=== PATIENT | female | born 1980 | race Caucasian/White ===

== ENCOUNTER 2018-06-30 17:02 | Emergency (ER) | payer OTHER, SELFPAY ==
[2018-06-30 17:18] VITALS: PULSE 126; RESP 20; TEMP 36.3; O2SAT 100; BMI 26.5
--- NOTE | 2018-06-30 17:22 | DI.RAD.S_ITS ---
PROCEDURE: XR FOOT RT MIN 3V INDICATIONS: injury, pain TECHNIQUE: 3 views of the foot were acquired. COMPARISON: None. FINDINGS: Bones: No fractures or dislocations. No suspicious bony lesions. Plantar and Achilles calcaneal spurs are seen. Soft tissues: Mild soft tissue swelling is seen. IMPRESSION: Soft tissue swelling, without an additional acute plain film abnormality identified. Dictated by: Hang Figueroa M.D. on 06/30/2018 at 17:40 Approved by: Hang Figueroa M.D. on 06/30/2018 at 17:40
--- NOTE | 2018-06-30 19:57 | ED_ITS ---
HPI - Extremity Injury (Lower) <PAUL Dejesus - Last Filed: 06/30/18 22:10> General Chief Complaint: Extremity Injury, Lower Stated Complaint: THINKS SHE BROKE HER RIGHT FOOT Time Seen by Provider: 06/30/18 19:56 Source: patient Mode of arrival: ambulatory Limitations: no limitations History of Present Illness HPI Narrative: 38-year-old healthy female that is a nonsmoker here for complaint of pain into her right toes or past 3 days. She states she has increased pain with ambulation and movement of the toes she denies any trauma to the toes area. She states that she has been any thing strain this recently. She reports the pain is worsened over the past couple of days making it hard for her to ambulate. Pain is limited to the 2nd and 3rd right toe mostly along the Mtp joints. She denies any other concerns or complaints at this time. MD complaint: other Related Data Previous Rx's Medication Instructions Recorded medroxyprogesterone 10 mg PO SI #60 tab 07/28/17 oxycodone-acetaminophen [Percocet] 0 tab PO Q4HP PRN #20 tab 07/28/17 Allergies Allergy/AdvReac Type Severity Reaction Status Date / Time No Known Allergies Allergy Uncoded 01/19/18 11:46 Review of Systems <PAUL Dejesus - Last Filed: 06/30/18 22:10> Review of Systems All systems reviewed & are unremarkable except as noted in HPI and below Constitutional Denies chills, Denies fever(s), Denies lethargy and Denies weakness Eyes Denies change in vision, Denies eye discharge, Denies irritation and Denies loss of vision ENT Ears, Nose, Mouth, and Throat: Denies change in voice, Denies neck pain and Denies sore throat Cardiovascular Denies chest pain, Denies irregular heart rhythm, Denies lightheadedness, Denies palpitations, Denies dyspnea, Denies dyspnea on exertion and Denies orthopnea Respiratory Denies cough, Denies dyspnea, Denies dyspnea on exertion and Denies wheezing Genitourinary Denies hematuria, Denies flank pain, Denies urinary incontinence and Denies urinary urgency Musculoskeletal Denies neck pain Integumentary/Breasts Denies pruritus, Denies erythema, Denies rash and Denies wounds Neurologic Denies confusion, Denies loss of vision and Denies weakness Psychiatric Denies anxiety, Denies confusion, Denies depression, Denies homicidal ideation and Denies suicidal ideation Endocrine Denies palpitations Hematologic/Lymphatic Denies easy bruising Allergic/Immunologic Denies wheezing Exam <PAUL Dejesus - Last Filed: 06/30/18 22:10> Initial Vital Signs Initial Vital Signs: Vital Signs Temperature 97.4 F L 06/30/18 17:18 Pulse Rate 126 H 06/30/18 17:18 Respiratory Rate 20 06/30/18 17:18 Pulse Oximetry 100 06/30/18 17:18 Const General: cooperative and well developed Nutritional Appearance: well nourished Orientation: alert, awake, oriented x3 and not confused HENHI Mouth: oral mucosae normal and moist mucous membranes Eyes General: appearance normal, both eyes and all related structures Eyelids: eyelids normal Conjunctivae: conjunctivae normal Sclera: sclerae normal Pupils: PERRL EOM: EOM intact bilaterally Resp Effort & Inspection: normal respiratory effort, able to speak in complete sentences, no respiratory distress and no use of accessory muscles Auscultation: clear to auscultation bilaterally, no rales, no rhonchi and no wheezes Cardio Rate: regular rate Rhythm: regular rhythm Heart Sounds: no click, no gallops, no murmurs and no rubs Pulses: normal peripheral pulses Skin General: no rashes or lesions noted, No jaundice and No petechiae Neuro General: alert, oriented x3, gait normal and no focal motor deficits Speech: speech normal Extrem Other: Right foot with no signs of trauma. No deformities. No ecchymosis. No swelling. No open lesions. Distal sensation is intact. Distal range of motion is intact however patient states she has difficulty moving the 2nd and 3rd toes due to discomfort. Distal cap refill less than 2 sec. <Shonna Woo DO - Last Filed: 07/01/18 03:07> Initial Vital Signs Initial Vital Signs: Vital Signs Temperature 97.4 F L 06/30/18 17:18 Pulse Rate 126 H 06/30/18 17:18 Respiratory Rate 20 06/30/18 17:18 Pulse Oximetry 100 06/30/18 17:18 Course <PAUL Dejesus - Last Filed: 06/30/18 22:10> Orders Ordered: ED Orders 06/30/18 17:22 XR foot RT min 3V Stat Vital Signs - 8 hr 06/30/18 20:30 Temperature 97.6 F Pulse Rate 88 Respiratory Rate 16 Blood Pressure [Left Arm] 123/88 Pulse Oximetry 100 <Shonna Woo DO - Last Filed: 07/01/18 03:07> Orders Ordered: ED Orders 06/30/18 17:22 XR foot RT min 3V Stat Vital Signs - 8 hr 06/30/18 20:30 Temperature 97.6 F Pulse Rate 88 Respiratory Rate 16 Blood Pressure [Left Arm] 123/88 Pulse Oximetry 100 MDM - Extremity Injury (Lower) <PAUL Dejesus - Last Filed: 06/30/18 22:10> Imaging Data Foot: Radiologist's impression: [address] [address] XRay Report Signed Patient: Eliz Sorensen MMR#: [id number] : 1980Acct:[id number] Age/Sex: 38 / FDate of Service: 06/30/18 Loc: ED Accession Number: [id number] Procedure: XR foot RT min 3V Ordering Provider: Junior Bobby PROCEDURE: XR FOOT RT MIN 3V INDICATIONS: injury, pain TECHNIQUE: 3 views of the foot were acquired. COMPARISON: None. FINDINGS: Bones: No fractures or dislocations. No suspicious bony lesions. Plantar and Achilles calcaneal spurs are seen. Soft tissues: Mild soft tissue swelling is seen. IMPRESSION: Soft tissue swelling, without an additional acute plain film abnormality identified. Dictated by: Hang Figueroa M.D. on 06/30/2018 at 17:40 Approved by: Hang Figueroa M.D. on 06/30/2018 at 17:40 [facility] Narrative Medical decision making narrative: X-ray of the right foot was obtained was negative for any acute fractures. Will treat for acute strain with over-the- counter Tylenol or Motrin as needed for any discomfort. Ice and elevation help with any swelling. She is placed in a postop shoe for comfort and support. She has a follow-up appointment with Podiatry tomorrow.. Follow up with primary care provider. Return emergency room any worsening symptoms. Discharge Plan Departure Patient Disposition: Home Clinical Impression: Sprain of right foot Discharge Date/Time: 06/30/18 20:42 Interventions: ED Discharge Assessment Last Done: 06/30/18 20:41 Instructions: DI for Foot Sprain Activity Restrictions/Additional Instructions: X-ray the right foot was obtained was negative for any acute findings. Signs and symptoms presents as sprain to the right foot. Follow up with primary care provider. Follow up with Podiatry as scheduled. [id number] Tylenol or Motrin as needed for any discomfort. Ice and elevation help with any swelling. You are placed in a postop shoe for comfort and support use as directed. For any worsening symptoms return to the emergency room. If continued pain at does not resolve may need to have advanced imaging such as MRI. Prescriptions: No Action medroxyprogesterone 10 MG tablet 10 mg PO SI Qty: 60 RF: 2 oxycodone-acetaminophen [Percocet] 5 MG/325 MG tablet PO Q4HP PRNQty: 20 RF: 0 Referrals: Patrick Monteiro MD [Primary Care Provider] - <Shonna Woo DO - Last Filed: 07/01/18 03:07> Cosign ED Attending Nadineature Attestation: I was immediately available in the department for consultation. Documentation has been reviewed. I agree with assessment and plan.
[2018-06-30 20:30] VITALS: BP 123/88; PULSE 88; RESP 16; TEMP 36.4; O2SAT 100
== END 2018-06-30 20:42 | disposition home or self-care (01) ==
PROVIDERS: Emergency Provider Nurse Practitioner Family; Family Provider Family Medicine; PCP Family Medicine
DX: S93.601A Unspecified sprain of right foot, initial encounter (principal)
CPT/HCPCS: 73630; 99282; 99283

== ENCOUNTER → 2018-07-01 15:27 | Outpatient (CLI) | payer OTHER, SELFPAY ==
[2018-07-01 16:41] LABS: Erythrocyte Sedimentation Rate 7 MM/HR (0-20)
[2018-07-01 17:26] LABS: Uric Acid 4.4 mg/dL (2.5-6.2)
[2018-07-01 17:33] LABS: C-Reactive Protein Quant < 0.5 mg/dL (<1.0); Rheumatoid Factor < 8.6 IU/mL (<12.0)
[2018-07-04 14:54] LABS: HLA B27 NEGATIVE (Negative)
[2018-07-04 18:54] LABS: ANA Pattern Homogeneous; ANA Screen, IFA Positive (Negative)
== END ==
PROVIDERS: Family Provider Family Medicine; PCP Family Medicine; Visit Provider Podiatrist
DX: M79.671 Pain in right foot (principal)
CPT/HCPCS: 36415; 84550; 85651; 86038; 86140; 86430; 86812

== ENCOUNTER → 2018-09-26 10:38 | Outpatient (CLI) | payer OTHER, SELFPAY ==
--- NOTE | 2018-09-26 | DI.MRI.S_ITS ---
PROCEDURE: MR FOOT RT WO/W CON INDICATIONS: ARTHROPATHY TECHNIQUE: Noncontrast coronal T1 spin echo and STIR, sagittal T1 spin echo with fat saturation and STIR, axial T1 spin echo and T2 fast spin echo with fat saturation. After the administration of contrast, axial/sagittal/coronal T1 spin echo with fat saturation through the right foot. COMPARISON: None. FINDINGS: Image quality: Excellent. Bones: There is marrow edema involving second proximal phalangeal shaft with mild surrounding soft tissue edema. No discrete fracture line is seen. No cortical disruption or erosion is noted. No other area of abnormal marrow signal. Well-defined plantar calcaneal enthesophyte is seen. No abnormal intraosseous enhancement. Soft tissues: No soft tissue masses are visualized. The scanned muscles demonstrate normal overall bulk and internal signal. Subcutaneous tissues appear normal as well. No abnormal soft tissue enhancement. Achilles tendon is intact. Plantar aponeurosis is intact. Extensor and flexor tendons of the ankle and foot are intact. Peroneus tendons are intact. Medial and lateral ankle ligaments are grossly intact. Lisfranc ligament and joint is intact. IMPRESSION: 1. Subtle marrow edema involving second proximal phalangeal shaft with surrounding soft tissue edema. No definite discrete fracture line is seen. No definite bony erosion or cortical destruction is noted. Finding may represent stress reaction versus early stress fracture involving the second proximal phalanx. 2. No other area of abnormal marrow signal. No area of abnormal contrast enhancement. 3. Tendons and ligaments of visualized right foot and ankle are grossly intact. Well-defined plantar calcaneal enthesophyte with intact plantar fascia. Dictated by: Isai Medina M.D. on 09/26/2018 at 14:39 Approved by: Isai Medina M.D. on 09/26/2018 at 14:51
== END ==
PROVIDERS: Family Provider Family Medicine; PCP Family Medicine; Visit Provider Specialist/Technologist Athletic Trainer
DX: R60.0 Localized edema (principal); M77.31 Calcaneal spur, right foot
CPT/HCPCS: 73720; A9579

== ENCOUNTER → 2020-04-16 16:28 | Outpatient (CLI) | payer OTHER, SELFPAY ==
--- NOTE | 2020-04-16 | DI.RAD.S_ITS ---
PROCEDURE: XR CHEST 2V INDICATIONS: Chest Wall Tenderness TECHNIQUE: 2 views of the chest were acquired. COMPARISON: [facility], CHEST 2 VIEW, 12/05/2008, 17:31. [facility], CHEST 2 VIEW, 08/06/2007, 11:01. FINDINGS: Surgical changes and devices: None. Lungs and pleura: Lungs are clear. No pleural effusions or pneumothorax. Mediastinum: Mediastinal contours are normal. Heart size is normal. Bones and chest wall: No suspicious bony abnormalities. Soft tissues appear unremarkable. IMPRESSION: Normal for age, no source of chest wall tenderness is seen. Dictated by: Ezio Ortega M.D. on 04/16/2020 at 17:01 Approved by: Ezio Ortega M.D. on 04/16/2020 at 17:02
--- NOTE | 2020-04-16 | DI.MG.S_ITS ---
BILATERAL DIGITAL SCREENING MAMMOGRAM 3D/2D WITH CAD: 04/16/2020 CLINICAL: Routine screening. Baseline exam. No prior exams were available for comparison. The tissue of both breasts is extremely dense, which lowers the sensitivity of mammography. Current study was also evaluated with a Computer Aided Detection (CAD) system. No significant masses, calcifications, or other findings are seen in either breast. IMPRESSION: NEGATIVE There is no mammographic evidence of malignancy. A 1 year screening mammogram is recommended. This exam was interpreted at Station ID: [id number]. NOTE: For mammograms, a report in lay terms will be sent to the patient. Approximately 15% of breast malignancies will not be visualized mammographically. In the management of a palpable breast mass, a negative mammogram must not discourage biopsy of a clinically suspicious lesion. Electronically Signed By: Elza ontiveros/annabel:04/16/2020 16:55:54 letter sent: Normal Exam ACR BI-RADS Category 1: Negative [id number]
== END ==
PROVIDERS: Family Provider Family Medicine; PCP Student in an Organized Health Care Education/Training Program; Referring Provider Student in an Organized Health Care Education/Training Program; Visit Provider Student in an Organized Health Care Education/Training Program
DX: Z12.31 Encounter for screening mammogram for malignant neoplasm of breast (principal); R07.89 Other chest pain
CPT/HCPCS: 71046; 77063; 77067

== ENCOUNTER → 2020-05-14 16:22 | Outpatient (CLI) | payer OTHER, SELFPAY ==
--- NOTE | 2020-05-14 | DI.US.S_ITS ---
PROCEDURE: US PELVIC COMPLETE INDICATIONS: ABNORMAL UTERINE BLEEDING TECHNIQUE: Real-time scanning was performed of the pelvic organs, with image documentation. Additional endovaginal scanning was necessary due to incomplete visualization of the adnexal and endometrial structures by transabdominal scanning. COMPARISON: [facility], US, PELVIC COMPLETE, 07/20/2017, 10:51. FINDINGS: Transabdominal scanning: A mild amount of free pelvic fluid is seen, which is considered to be within physiologic limits. Limited scanning through the kidneys shows no hydronephrosis. Endovaginal scanning: Uterus: Uterus is normal in size at 8.6 x 4.9 x 5.9 cm. The endometrium measures 14 mm in combined thickness. There is possible adenomyomatosis involving the uterus. Incidental note is made of nabothian cysts. Hypoechoic uterine lesions are seen, which are attributed to fibroids. They measure as follows: Left anterior uterus, intramural, potentially necrotic, 1.7 x 1.2 x 1.5 cm Mid anterior uterus, intramural, 1 x 0.8 x 1.1 cm Left anterior uterus, intramural, heterogeneous, ill-defined, 3 x 1.7 x 2.4 cm Ovaries: The right ovary measures 4.7 x 3.2 x 3 cm and demonstrates a complex cyst that measures 2.7 cm. The left ovary measures 3 x 1.5 x 1.7 cm and demonstrates an unremarkable sonographic appearance. IMPRESSION: A complex cyst involves the right ovary, most likely related to a hemorrhagic cyst. At clinical discretion, a followup pelvic ultrasound is suggested in 6 weeks to assure resolution/ improvement. Several irregular fibroids are seen. Dictated by: Hang Figueroa M.D. on 05/14/2020 at 17:14 Approved by: Hang Figueroa M.D. on 05/14/2020 at 17:16
== END ==
PROVIDERS: Family Provider Family Medicine; PCP Student in an Organized Health Care Education/Training Program; Referring Provider Student in an Organized Health Care Education/Training Program; Visit Provider Student in an Organized Health Care Education/Training Program
DX: N93.9 Abnormal uterine and vaginal bleeding, unspecified (principal); D25.1 Intramural leiomyoma of uterus; N83.291 Other ovarian cyst, right side
CPT/HCPCS: 76830; 76856

== ENCOUNTER → 2021-06-18 10:54 | Outpatient (CLI) | payer OTHER, SELFPAY ==
--- NOTE | 2021-06-18 | DI.MG.S_ITS ---
BILATERAL DIGITAL SCREENING MAMMOGRAM 3D/2D WITH CAD: 06/18/2021 CLINICAL: Routine screening. Comparison is made to exam dated: 04/16/2020 [facility]. The tissue of both breasts is extremely dense, which lowers the sensitivity of mammography. Current study was also evaluated with a Computer Aided Detection (CAD) system. No significant masses, calcifications, or other findings are seen in either breast. There has been no significant interval change. IMPRESSION: NEGATIVE There is no mammographic evidence of malignancy. A 1 year screening mammogram is recommended. This exam was interpreted at Station ID: [id number]. NOTE: For mammograms, a report in lay terms will be sent to the patient. Approximately 15% of breast malignancies will not be visualized mammographically. In the management of a palpable breast mass, a negative mammogram must not discourage biopsy of a clinically suspicious lesion. Electronically Signed By: Cory Hernandez acr/annabel:06/18/2021 11:54:44 letter sent: Normal Exam ACR BI-RADS Category 1: Negative 3341F
== END ==
PROVIDERS: PCP Student in an Organized Health Care Education/Training Program; Referring Provider Student in an Organized Health Care Education/Training Program; Visit Provider Student in an Organized Health Care Education/Training Program
DX: Z12.31 Encounter for screening mammogram for malignant neoplasm of breast (principal)
CPT/HCPCS: 77063; 77067

== ENCOUNTER 2021-12-26 11:27 | Emergency (ER) | payer OTHER, SELFPAY ==
[2021-12-26 11:33] VITALS: BP 167/83; PULSE 61; RESP 18; TEMP 36.6; O2SAT 97; BMI 27.4
--- NOTE | 2021-12-26 11:37 | DI.RAD.S_ITS ---
PROCEDURE: XR CHEST 1V INDICATIONS: chest pain TECHNIQUE: One view of the chest was acquired. COMPARISON: [facility], [place], XR CHEST 2V, 04/16/2020, 16:40. FINDINGS: Surgical changes and devices: None. Lungs and pleura: Lungs are clear. No pleural effusions or pneumothorax. Mediastinum: Mediastinal contours appear normal. Heart size is normal. Bones and chest wall: No suspicious bony lesions. Overlying soft tissues appear unremarkable. IMPRESSION: No acute cardiopulmonary abnormality. Dictated by: Cory Hernandez M.D. on 12/26/2021 at 12:54 Approved by: Cory Hernandez M.D. on 12/26/2021 at 12:55
[2021-12-26 12:02] LABS: Add Manual Diff / Slide Review NO; Basophils Absolute Auto 0 /uL (0-100); Basophils Percent Auto 0.5 % (0-2); Eosinophils Absolute Auto 0 /uL (0-450); Eosinophils Percent Auto 0.4 % (2-4); Hematocrit 42.3 % (36-46); Hemoglobin 14.8 g/dL (12.0-16.0); Lymphocytes Absolute Auto 4700 /uL (1100-4500); Lymphocytes Percent Auto 44.5 % (25-40); Mean Corpuscular Hemoglobin 32.5 PG (26-34); Mean Corpuscular Volume 92.8 fL (80-100); Monocytes Absolute Auto 700 /uL (0-900); Monocytes Percent Auto 7.1 % (3-14); Neutrophils Absolute Auto 5000 /uL (1500-7000); Neutrophils Percent Auto 47.5 % (50-75); Platelet Count 286 X10^3/uL (150-400); Red Blood Cell Count 4.55 X10^6/uL (4.0-5.2); Red Cell Distribution Width 12.7 % (11.6-14.8); White Blood Cell Count 10.5 X10^3/uL (4.5-11.0)
[2021-12-26 12:16] LABS: Alanine Aminotransferase 22 IU/L (<35); Albumin 4.8 g/dL (3.5-5.0); Albumin Globulin Ratio 1.5 (1.0-2.8); Alkaline Phosphatase 64 U/L (38-126); Aspartate Aminotransferase 27 IU/L (14-36); BUN Creatinine Ratio 26.3 (6-22); Bilirubin Total 0.5 mg/dL (0.2-1.3); Blood Urea Nitrogen 15 mg/dL (7-17); Calcium 9.8 mg/dL (8.4-10.2); Carbon Dioxide 26 mmol/L (22-32); Chloride 103 mmol/L (98-107); Creatine Kinase 53 U/L (30-135); Estimated Glomerular Filt Rate > 60.0 mL/min (>60); Globulin 3.2 g/dL (1.7-4.1); Glucose 86 mg/dL (70-100); HEMOLYSIS < 15 (0-50); Lipase 119 U/L (23-300); Magnesium 1.9 mg/dL (1.6-2.3); Potassium 3.6 mmol/L (3.4-5.1); Sodium 138 mmol/L (137-145)
[2021-12-26 12:20] VITALS: PULSE 68; O2SAT 98
[2021-12-26 12:21] VITALS: BP 154/74; PULSE 62; RESP 20; O2SAT 98
[2021-12-26 12:25] LABS: Troponin I < 0.012 ng/mL (0.01-0.034)
[2021-12-26 12:30] VITALS: BP 151/77; PULSE 59; RESP 20; O2SAT 97
--- NOTE | 2021-12-26 12:42 | ED.CHESTPAIN ---
HPI - Chest Pain <Lukas Lopez PA-C - Last Filed: 12/26/21 18:14> General Chief Complaint: Chest Pain Stated Complaint: Sebastian Shots Tues/Possible Cardio Event Time Seen by Provider: 12/26/21 12:20 Source: patient Mode of arrival: Ambulatory Limitations: no limitations History of Present Illness HPI narrative: This is a 41-year-old female with no significant past medical history presents to emergency department due to fatigue, left-sided anterior neck pain, and an episode of chest pain earlier this week after she received a lumbar cortisone injection 3 days ago. Patient states she is received a few cortisone injections in the past in the lumbar area and always felt ?crummy? but different than what she is feeling today. She states she was seen at primary care provider's office who advised her to come the emergency department to rule out cardiac event. Patient denies any nausea, vomiting, acute chest pain, shortness breath, or any other concerning signs symptoms. Related Data Previous Rx's Medication Instructions Recorded medroxyprogesterone 10 mg tablet 10 mg PO SI #60 tab 07/28/17 oxycodone-acetaminophen 5 mg-325 0 tab PO Q4HP PRN #20 tab 07/28/17 mg tablet (Percocet) Allergies Allergy/AdvReac Type Severity Reaction Status Date / Time No Known Allergies Allergy Uncoded 01/19/18 11:46 Review of Systems <Lukas Lopez PA-C - Last Filed: 12/26/21 18:14> Review of Systems Narrative: See HPI. Patient History <Lukas Lopez PA-C - Last Filed: 12/26/21 18:14> Social History Smoking Status: Never smoker Smoking Status: Never smoker Substance Use Type: does not use Exam <Lukas Lopez PA-C - Last Filed: 12/26/21 18:14> Initial Vital Signs Initial Vital Signs: Vital Signs Temperature 97.8 F 12/26/21 11:33 Pulse Rate 61 12/26/21 11:33 Respiratory Rate 18 12/26/21 11:33 Blood Pressure 167/83 H 12/26/21 11:33 Pulse Oximetry 97 12/26/21 11:33 Const General: cooperative and healthy appearing Orientation: Orientation (A&O x4) [facility] Head: normal to inspection, normocephalic and atraumatic Eyes General: appearance normal, both eyes and all related structures Alignment and Position: alignment normal Neck Neck: normal visual inspection, full ROM and other (No nuchal rigidity, trachea is midline, no JVD) Chest Chest: normal inspection of the chest Resp Effort & Inspection: normal respiratory effort and able to speak in complete sentences Cardio Rate: regular rate Rhythm: regular rhythm GI Inspection: normal to inspection Palpation: soft and other Other: Nontender Neuro General: patient alert, patient awake, patient oriented x3 and CN's II-XI intact bilaterally <Antonio Oh DO - Last Filed: 12/27/21 07:09> Initial Vital Signs Initial Vital Signs: Vital Signs Temperature 97.8 F 12/26/21 11:33 Pulse Rate 61 12/26/21 11:33 Respiratory Rate 18 12/26/21 11:33 Blood Pressure 167/83 H 12/26/21 11:33 Pulse Oximetry 97 12/26/21 11:33 Course <Lukas Lopez PA-C - Last Filed: 12/26/21 18:14> Orders Ordered: ED Orders 12/26/21 11:37 XR chest 1V Stat EKG-12 Lead Stat 12/26/21 11:45 Complete Blood Count AUTO DIFF Stat Comprehensive Metabolic Panel Stat Lipase Stat Magnesium Stat Troponin & CK Cardiac Panel Stat Vital Signs Vital signs: Vital Signs - 8 hr 12/26/21 11:33 12/26/21 12:20 12/26/21 12:21 Temperature 97.8 F Pulse Rate 61 68 62 Respiratory Rate 18 20 Blood Pressure 167/83 H 154/74 H Pulse Oximetry 97 98 98 12/26/21 12:30 12/26/21 13:20 Temperature Pulse Rate 59 L 52 L Respiratory Rate 20 Blood Pressure 151/77 H 141/58 H Pulse Oximetry 97 95 <Antonio Oh DO - Last Filed: 12/27/21 07:09> Orders Ordered: ED Orders 12/26/21 11:37 XR chest 1V Stat EKG-12 Lead Stat 12/26/21 11:45 Complete Blood Count AUTO DIFF Stat Comprehensive Metabolic Panel Stat Lipase Stat Magnesium Stat Troponin & CK Cardiac Panel Stat Vital Signs Vital signs: Vital Signs - 8 hr 12/26/21 11:33 12/26/21 12:20 12/26/21 12:21 Temperature 97.8 F Pulse Rate 61 68 62 Respiratory Rate 18 20 Blood Pressure 167/83 H 154/74 H Pulse Oximetry 97 98 98 12/26/21 12:30 12/26/21 13:20 Temperature Pulse Rate 59 L 52 L Respiratory Rate 20 Blood Pressure 151/77 H 141/58 H Pulse Oximetry 97 95 MDM - Chest Pain <Lukas Lopez PA-C - Last Filed: 12/26/21 18:14> Lab Data Result diagrams: 12/26/21 11:45 12/26/21 11:45 Labs: Lab Results 12/26/21 12/26/21 Range/Units 11:45 11:45 WBC 10.5 (4.5-11.0) X10^3/uL RBC 4.55 (4.0-5.2) X10^6/uL Hgb 14.8 (12.0-16.0) g/dL Hct 42.3 (36-46) % MCV 92.8 (80-100) fL MCH 32.5 (26-34) PG MCHC 35.0 (30-36) % RDW 12.7 (11.6-14.8) % Plt Count 286 (150-400) X10^3/uL Neut % (Auto) 47.5 L (50-75) % Lymph % (Auto) 44.5 H (25-40) % Morgan % (Auto) 7.1 (3-14) % Eos % (Auto) 0.4 L (2-4) % Baso % (Auto) 0.5 (0-2) % Neut # (Auto) 5000 (1290-7351) /uL Lymph # (Auto) 4700 H (7717-0881) /uL Morgan # (Auto) 700 (0-900) /uL Eos # (Auto) 0 (0-450) /uL Baso # (Auto) 0 (0-100) /uL Sodium 138 (137-145) mmol/L Potassium 3.6 (3.4-5.1) mmol/L Chloride 103 (98-107) mmol/L Carbon Dioxide 26 (22-32) mmol/L BUN 15 (7-17) mg/dL Creatinine 0.57 (0.52-1.04) mg/dL Estimated GFR > 60.0 (>60) mL/min BUN/Creatinine Ratio 26.3 H (6-22) Glucose 86 (70-100) mg/dL Calcium 9.8 (8.4-10.2) mg/dL Magnesium 1.9 (1.6-2.3) mg/dL Total Bilirubin 0.5 (0.2-1.3) mg/dL AST 27 (14-36) IU/L ALT 22 (<35) IU/L Alkaline Phosphatase 64 (38-126) U/L Total Creatine Kinase 53 (30-135) U/L CK-MB (CK-2) TNP CK-MB (CK-2) Rel Index TNP Troponin I < 0.012 (0.01-0.034) ng/mL Total Protein 8.0 (6.3-8.2) g/dL Albumin 4.8 (3.5-5.0) g/dL Globulin 3.2 (1.7-4.1) g/dL Albumin/Globulin Ratio 1.5 (1.0-2.8) Lipase 119 (23-300) U/L Urine Dip Bedside Urine Glucose Negative Bedside Urine Bilirubin - Negative Bedside Urine Ketone - Negative Urine Specific He[place]ord 1.005 Bedside Urine Occult Blood - Negative Bedside Urine pH 7.5 Bedside Urine Protein - Negative Bedside Urine Urobilinogen - Negative Bedside Urine Nitrite - Negative Bedside Urine Leukocytes - Negative Esterase Imaging Data Chest x-ray: My Impression: 4 Lukas Lopez [facility] Routine Call Back Main ED ?19? My List ?4? Surge ?0? Waiting ?7? R02? [place]? Eliz? 41 F? With Doctor? 1h 34m? 2-Emergent? ?? Chest Pain? Sebastian Shots Tues/Possible Cardio Event? ?? 12/26/21 12:20? REG ER? Draft? Lukas Mckeon Order BP 151/77 Pulse 59 Resp 20 Temp O2 Sat 97% ?Complete B... Lipase Sta... ?Chem Magnesium ... Troponin &... Imaging NPO Diet Cardiac mo... EKG-12 Stacey... R12? Nuha? Wendy? 63 F? With Doctor? 21m? No Chief Complaint? Muscle cramps right side? ?? 12/26/21 12:45? PRE ER? No Document? Lukas John Ally T 1301 Order R13? Briones? Harry? 44 M? With Doctor? 1h 13m? 4-Less Urgent? ?? Extremity Injury, Lower? Hyperextended Rt. knee? ?? 12/26/21 11:53? REG ER? Draft? Lukas Mccoy H Order BP 103/65 Pulse 71 Resp 16 Temp 98.3 F O2 Sat 99% (RA) Imaging WRoom? [place]? Fela? 74 F? With Doctor? 1h 30m? 4-Less Urgent? ?? Skin/Abscess/Foreign Body? Fall, Lump on Lip Getting Bigger? ?? 12/26/21 12:06? REG ER? Draft? Lukas Lopez Order BP 136/61 Pulse 57 Resp 18 Temp 98.0 F O2 Sat 98% (RA) Imaging - XR chest 1V Eliz Sorensen??41??F??1980 ? Allergy/Adv: [No Known Allergies] Close Imaging ACTIVITY DATE EXAM STATUS AUTHOR 12/26/21 11:37 Chest X-Ray Signed Cory Henrandez Imaging Reports Close Chest X-Ray (Signed) Cory Hernandez - 12/26/21 Launch?[place] [address] XRay Report Signed Patient: Eliz Sorensen MR#: [id number] : 1980 Acct:[id number] Age/Sex: 41 / F Date of Service: 12/26/21 Loc: ED Accession Number: [id number] ?? Procedure: XR chest 1V Ordering Provider: Antonio Oh D.O. PROCEDURE:? XR CHEST 1V ? INDICATIONS:? chest pain ? TECHNIQUE:? One view of the chest was acquired.? ? COMPARISON:? [facility], , XR CHEST 2V, 04/16/2020, 16:40. ? FINDINGS:? ? Surgical changes and devices:? None.? ? Lungs and pleura:? Lungs are clear.? No pleural effusions or pneumothorax.? ? Mediastinum:? Mediastinal contours appear normal.? Heart size is normal.? ? Bones and chest wall:? No suspicious bony lesions.? Overlying soft tissues appear unremarkable.? ? IMPRESSION:? No acute cardiopulmonary abnormality. ? ? Dictated by: Cory Hernandez M.D. on 12/26/2021 at 12:54 ? ? Approved by: Cory Hernandez M.D. on 12/26/2021 at 12:55 ? ECG Data Interpretation: 1143: Sinus bradycardia with a rate of 58. No ST elevation. Regular rhythm. MDM Narrative Medical decision making narrative: This is a 41-year-old female presents to emergency department due to a suspected adverse reaction to a cortisone injection in the lumbar area 3 days ago. Patient developed an episode of chest pain and was sent here to evaluate for a cardiac event. EKG showed no ST elevation or T-wave abnormalities. Troponin within normal limits. Cbc showed no evidence of infection and CMP showed no abnormalities. Chest x-ray unremarkable. Patient did not present with any clinical signs of meningitis, no fevers, altered mental status, nuchal rigidity. Patient will be discharged with recommendations to follow-up with primary care provider for if symptoms continue. Recommended symptomatic treatment. <Antonio Oh, - Last Filed: 12/27/21 07:09> Lab Data Labs: Lab Results 12/26/21 12/26/21 Range/Units 11:45 11:45 WBC 10.5 (4.5-11.0) X10^3/uL RBC 4.55 (4.0-5.2) X10^6/uL Hgb 14.8 (12.0-16.0) g/dL Hct 42.3 (36-46) % MCV 92.8 (80-100) fL MCH 32.5 (26-34) PG MCHC 35.0 (30-36) % RDW 12.7 (11.6-14.8) % Plt Count 286 (150-400) X10^3/uL Neut % (Auto) 47.5 L (50-75) % Lymph % (Auto) 44.5 H (25-40) % Morgan % (Auto) 7.1 (3-14) % Eos % (Auto) 0.4 L (2-4) % Baso % (Auto) 0.5 (0-2) % Neut # (Auto) 5000 (0146-3444) /uL Lymph # (Auto) 4700 H (8467-5630) /uL Morgan # (Auto) 700 (0-900) /uL Eos # (Auto) 0 (0-450) /uL Baso # (Auto) 0 (0-100) /uL Sodium 138 (137-145) mmol/L Potassium 3.6 (3.4-5.1) mmol/L Chloride 103 (98-107) mmol/L Carbon Dioxide 26 (22-32) mmol/L BUN 15 (7-17) mg/dL Creatinine 0.57 (0.52-1.04) mg/dL Estimated GFR > 60.0 (>60) mL/min BUN/Creatinine Ratio 26.3 H (6-22) Glucose 86 (70-100) mg/dL Calcium 9.8 (8.4-10.2) mg/dL Magnesium 1.9 (1.6-2.3) mg/dL Total Bilirubin 0.5 (0.2-1.3) mg/dL AST 27 (14-36) IU/L ALT 22 (<35) IU/L Alkaline Phosphatase 64 (38-126) U/L Total Creatine Kinase 53 (30-135) U/L CK-MB (CK-2) TNP CK-MB (CK-2) Rel Index TNP Troponin I < 0.012 (0.01-0.034) ng/mL Total Protein 8.0 (6.3-8.2) g/dL Albumin 4.8 (3.5-5.0) g/dL Globulin 3.2 (1.7-4.1) g/dL Albumin/Globulin Ratio 1.5 (1.0-2.8) Lipase 119 (23-300) U/L Urine Dip Bedside Urine Glucose Negative Bedside Urine Bilirubin - Negative Bedside Urine Ketone - Negative Urine Specific [place]ord 1.005 Bedside Urine Occult Blood - Negative Bedside Urine pH 7.5 Bedside Urine Protein - Negative Bedside Urine Urobilinogen - Negative Bedside Urine Nitrite - Negative Bedside Urine Leukocytes - Negative Esterase Discharge Plan Departure Patient Disposition: Home Clinical Impression: Medication adverse effect Activity Restrictions/Additional Instructions: Thank you for coming to the [facility] Emergency Department today. I am sorry that this happened to you. The lab work we did showed no evidence of any current infection, electrolyte abnormality, heart attack, or any other acute findings. EKG showed no evidence of a heart attack or other arrhythmia. Chest x-ray showed no lung or heart abnormality. I suspect that his symptoms should improve over time with rest, fluids, and Tylenol or ibuprofen. Please follow-up with your primary care provider as soon as possible for further care and evaluation. I hope you feel better soon. Prescriptions: No Action medroxyprogesterone 10 MG tablet 10 mg PO SI Qty: 60 2RF oxycodone-acetaminophen [Percocet] 5 MG/325 MG tablet 0 tab PO Q4HP PRNQty: 20 0RF Referrals: Catie Guadalupe MD [Primary Care Provider] - <Antonio Oh DO - Last Filed: 12/27/21 07:09> Cosign ED Attending Cosignature Attestation: I was immediately available in the department for consultation. This documentation has been reviewed and I agree with assessment and plan. Supervised by Antonio Oh DO
[2021-12-26 13:20] VITALS: BP 141/58; PULSE 52; O2SAT 95
== END 2021-12-26 13:21 | disposition home or self-care (01) ==
PROVIDERS: Emergency Medicine; Emergency Provider Physician Assistant Medical; PCP Student in an Organized Health Care Education/Training Program
DX: R07.9 Chest pain, unspecified (principal); T38.0X5A Adverse effect of glucocorticoids and synthetic analogues, initial encounter
CPT/HCPCS: 36415; 71045; 80053; 81003; 82550; 83690; 83735; 84484; 85025; 93005; 93010; 99283; 99284

== ENCOUNTER → 2022-02-04 09:09 | Outpatient (CLI) | payer OTHER, SELFPAY ==
--- NOTE | 2022-02-04 | DI.MRI.S_ITS ---
PROCEDURE: MR HEAD/BRAIN WO/W CON INDICATIONS: Headache/dizziness and giddiness TECHNIQUE: Noncontrast axial T1 spin echo, axial T2 fast spin echo, sagittal and axial FLAIR, coronal T2 fast spin echo, axial gradient echo, axial diffusion and ADC through the brain. After the administration of contrast, axial and coronal 3D VIBE or T1 spin echo with fat saturation through the brain. COMPARISON: None. FINDINGS: Image quality: Excellent. CSF Spaces: Basal cisterns are patent. No extra-axial fluid collections. Ventricles are normal in size and shape. Brain: No midline shift. No intracranial bleeds or masses. No abnormal intracranial enhancement. The brainstem appears normal. Diffusion-weighted images demonstrate no acute infarcts. Normal intravascular flow voids are present. Minimal nonspecific bifrontal white matter hyperintensities measure less than 3- 4 mm The pituitary gland is slightly full measuring 1.1 by 0.6 cm on the sagittal exam, and the superior capsule is convex. Skull and face: Calvarial marrow is normal in signal. Orbits appear normal. Sinuses: Sinuses and mastoids appear clear. IMPRESSION: 1. Fullness of the pituitary gland without suprasellar extension. Consider follow-up dedicated MR pituitary study to evaluate for underlying small microadenoma 2. Nonspecific white matter hyperintensities probably reflect early chronic ischemic change. Differential includes migrainous vasculopathy and sequelae of prior trauma or infectious/inflammatory process. Approved by: Maikel Hector M.D. on 02/04/2022 at 10:41
--- NOTE | 2022-02-04 | DI.MRI.S_ITS ---
PROCEDURE: MR ANGIO HEAD WO CON INDICATIONS: Headache/dizziness and giddiness TECHNIQUE: Noncontrast axial 3-D [id number] MR angiogram, with 3-dimensional maximum intensity projection (MIP) reformats of the internal carotid arteries and posterior circulation then performed. COMPARISON: [facility], MR, MR HEAD/BRAIN WO/W CON, 02/04/2022, 9:28. FINDINGS: Image quality: Excellent. Anterior circulation: Intracranial internal carotid arteries demonstrate normal size and intraluminal flow signal. The flow within the paired anterior cerebral arteries is normal and symmetric. The flow within the middle cerebral arteries is normal and symmetric. The anterior communicating artery is seen. No stenoses, occlusions, or aneurysms. Posterior circulation: Visualized portions of the vertebral arteries demonstrate normal caliber, and join to form a normal appearing basilar artery. The flow within the posterior cerebral arteries is normal and symmetric. No stenoses, occlusions, or aneurysms. Vertebral arteries are codominant. IMPRESSION: No areas of hemodynamically significant stenosis, vascular occlusion or aneurysmal dilation within the anterior circulation. No areas of hemodynamically significant stenosis, vascular occlusion or aneurysmal dilation within the posterior circulation. Dictated by: Shandra Burton M.D. on 02/04/2022 at 16:22 Approved by: Shandra Burton M.D. on 02/04/2022 at 16:23
== END ==
PROVIDERS: PCP Student in an Organized Health Care Education/Training Program; Referring Provider Student in an Organized Health Care Education/Training Program; Visit Provider Student in an Organized Health Care Education/Training Program
DX: E23.7 Disorder of pituitary gland, unspecified (principal); R51.9 Headache, unspecified; R42 Dizziness and giddiness; R09.89 Other specified symptoms and signs involving the circulatory and respiratory systems
CPT/HCPCS: 70544; 70553; A9579

== ENCOUNTER → 2022-02-19 09:10 | Outpatient (CLI) | payer OTHER, SELFPAY ==
--- NOTE | 2022-02-19 | DI.MRI.S_ITS ---
PROCEDURE: MR BRAIN (PITUITARY) WWO CON INDICATIONS: Other disorders of pituitary gland TECHNIQUE: Noncontrast sagittal and axial FLAIR, axial gradient echo, axial diffusion and ADC through the brain. Thin-slice sagittal and coronal T1 spin echo, coronal T2 fast spin echo through the pituitary. After the administration contrast, optional dynamic coronal T1 spin echo, thin-slice coronal and sagittal T1 spin echo images through the pituitary fossa; axial T1 spin echo with fat saturation through the brain. COMPARISON: [facility], MR, MR HEAD/BRAIN WO/W CON, 02/04/2022, 9:28. [facility], MR, MR ANGIO HEAD WO CON, 02/04/2022, 9:15. FINDINGS: Image quality: Excellent. Pituitary Gland: Pituitary gland is at the upper limits of normal in size. It is slightly heterogeneous enhancement pattern but no definitive lesions are identified. Infundibulum is midline. CSF Spaces: Ventricles are normal in size and shape. Basal cisterns are patent. No extra-axial fluid collections. Brain: No intracranial bleeds or mass effects. No abnormal intracranial enhancement. Starkey-white matter interface is intact. Diffusion weighted images demonstrate no acute ischemic insults. Brainstem is normal. Normal intravascular flow voids are present. Skull and face: Calvarial marrow is normal in signal. Orbits appear normal. Sinuses: Sinuses and mastoids are clear. IMPRESSION: Pituitary gland is at the upper limits of normal in size. While there is a somewhat heterogeneous enhancement pattern, no definitive masses are identified. Dictated by: Shandra Burton M.D. on 02/19/2022 at 15:54 Transcribed by: JESUS ALBERTO on 02/19/2022 at 16:04 Approved by: Shandra Burton M.D. on 03/10/2022 at 13:55
== END ==
PROVIDERS: PCP Student in an Organized Health Care Education/Training Program; Referring Provider Student in an Organized Health Care Education/Training Program; Visit Provider Student in an Organized Health Care Education/Training Program
DX: E23.6 Other disorders of pituitary gland (principal)
CPT/HCPCS: 70553; A9579

== ENCOUNTER → 2022-03-04 08:19 | Outpatient (CLI) | payer OTHER, SELFPAY ==
[2022-03-04 09:42] LABS: Free T4, Direct Thyroxine 1.14 ng/dL (0.78-2.19)
[2022-03-04 09:43] LABS: Follicle Stimulating Hormone 3.33 mIU/mL; Luteinizing Hormone 2.04 mIU/mL; Prolactin 29.9 ng/mL (3.0-18.6)
[2022-03-04 09:55] LABS: Thyroid Stimulating Hormone 1.76 uIU/mL (0.47-4.68)
[2022-03-04 09:57] LABS: Cortisol AM (Before 10AM) 6.92 ug/dL (4.46-22.7)
[2022-03-04 10:15] LABS: D Dimer < 200 ng/mL (<230)
[2022-03-04 22:50] LABS: Triiodothyronine T3 Total 127 ng/dL (71-180)
[2022-03-06 04:14] LABS: IGF-1 169 ng/mL (74-239)
== END ==
PROVIDERS: PCP Student in an Organized Health Care Education/Training Program; Referring Provider Internal Medicine Endocrinology, Diabetes & Metabolism; Visit Provider Internal Medicine Endocrinology, Diabetes & Metabolism
DX: D35.2 Benign neoplasm of pituitary gland (principal)
CPT/HCPCS: 36415; 82533; 82670; 83001; 83002; 84146; 84305; 84439; 84443; 84480; 85379

== ENCOUNTER → 2022-03-11 10:21 | Outpatient (CLI) | payer OTHER, SELFPAY ==
[2022-03-17 13:21] LABS: Cortisol Fr ug/24hr urine 31 ug/24 hr (6-42); Cortisol, Free, Urine 10 ug/L (Undefined)
== END ==
PROVIDERS: PCP Student in an Organized Health Care Education/Training Program; Referring Provider Internal Medicine Endocrinology, Diabetes & Metabolism; Visit Provider Internal Medicine Endocrinology, Diabetes & Metabolism
DX: D35.2 Benign neoplasm of pituitary gland (principal)
CPT/HCPCS: 82530

== ENCOUNTER 2022-05-19 16:50 | Emergency (ER) | payer BC, SELFPAY ==
[2022-05-19 16:59] VITALS: BP 138/78; PULSE 89; RESP 14; TEMP 36.7; O2SAT 99; BMI 26.2
[2022-05-19] MEDS: LORazepam 0.5 MG TABLET PO (17:24)
--- NOTE | 2022-05-19 18:04 | ED_ITS ---
HPI - Anxiety <PAUL Juarez - Last Filed: 05/19/22 18:18> General Chief Complaint: Anxiety Stated Complaint: PANIC ATTACK Time Seen by Provider: 05/19/22 17:12 Source: patient and family Mode of arrival: Wheelchair History of Present Illness HPI narrative: 42-year-old female, nonsmoker, presents to the emergency department with a anxiety attack secondary to the her dog. Patient's dog has had cancer and became so severe that they had to put him down earlier today. Patient got home and could not stop crying and was started have a hard time breathing. Patient had a friend drive her to the emergency department for evaluation and treatment. Related Data Previous Rx's Medication Instructions Recorded hydroxyzine HCl 50 mg tablet 50 mg PO QID PRN anxiety #14 tabs 05/19/22 Allergies Allergy/AdvReac Type Severity Reaction Status Date / Time No Known Drug Allergies Allergy Verified 05/19/22 17:02 Review of Systems <PAUL Juarez - Last Filed: 05/19/22 18:18> Review of Systems Narrative: Narrative: GENERAL: Denies chills, fatigue, fever, sweats. See HPI HEENT: Denies sinus pain, ear pain, sore throat, difficulty swallowing, dizziness. RESPIRATORY: Denies dyspnea, cough, wheezing, sputum. CARDIOVASCULAR: Denies chest pain, palpitations, edema. GASTROINTESTINAL: Denies nausea, vomiting, abdominal pain, diarrhea, constipation. : Denies dysuria, frequency, incontinence, hematuria, urinary retention, flank pain. MSK: Denies weakness, joint pain, or bony pain. SKIN: Denies rash, skin lesions, or pruritis. NEUROLOGIC: Denies weakness, dizziness, headache, numbness, confusion. PSYCHIATRIC: No concerning psychosocial issues. Patient History <PAUL Juarez - Last Filed: 05/19/22 18:18> Social History Smoking Status: Never smoker Smoking Status: Never smoker alcohol intake frequency: 0-2 drinks per day Substance Use Type: does not use Exam <PAUL Juarez - Last Filed: 05/19/22 18:18> Narrative Exam Narrative: Exam Narrative: GENERAL: This is a well-nourished, well-developed patient, in no acute distress HEAD: Atraumatic. Normocephalic. EYES: Pupils equal round and reactive. Extraocular motions intact. No scleral icterus, injection or drainage. ENT: Nose without bleeding, purulent drainage. Throat without erythema, tonsillar hypertrophy or exudate. Airway patent. NECK: Trachea midline. No JVD or lymphadenopathy. Nontender. CARDIOVASCULAR: Regular rate and rhythm without murmurs, peripheral pulses intact, cap refill <2 sec. RESPIRATORY: Breath sounds equal and clear bilaterally. No wheezes, rales, or rhonchi. No cough. No increased respiratory effort. No accessory muscle use. GASTROINTESTINAL: Abdomen soft, non-tender, nondistended without guarding or rebound. No suprapubic pain. MSK: Moves all extremities. Normal range of motion, no clubbing or edema. Neurovascularly intact. NEURO: A&O x 3. Very distraught over the loss of dog. Tearful during interview. SKIN: Warm, dry, no rashes or lesions noted. Initial Vital Signs Initial Vital Signs: Vital Signs Temperature 98.0 F 05/19/22 16:59 Pulse Rate 89 05/19/22 16:59 Respiratory Rate 14 05/19/22 16:59 Blood Pressure 138/78 05/19/22 16:59 Pulse Oximetry 99 05/19/22 16:59 Oxygen Delivery Method 05/19/22 16:59 Reviewed <Gabby Jara DO - Last Filed: 05/25/22 03:58> Initial Vital Signs Initial Vital Signs: Vital Signs Temperature 98.0 F 05/19/22 16:59 Pulse Rate 89 05/19/22 16:59 Respiratory Rate 14 05/19/22 16:59 Blood Pressure 138/78 05/19/22 16:59 Pulse Oximetry 99 05/19/22 16:59 Oxygen Delivery Method 05/19/22 16:59 Course <PAUL Juarez - Last Filed: 05/19/22 18:18> Orders Ordered: Discontinued Medications Lorazepam (Lorazepam 0.5 Mg Tablet) 0.5 mg PO NOW ONE Stop: 05/19/22 17:13 Last Admin: 05/19/22 17:24 Dose: 0.5 mg Documented By: JEMIMA Vital Signs Vital signs: Vital Signs - 8 hr 05/19/22 16:59 Temperature 98.0 F Pulse Rate 89 Respiratory Rate 14 Blood Pressure 138/78 Pulse Oximetry 99 Oxygen Delivery Method Room Air <Gabby Jara DO - Last Filed: 05/25/22 03:58> Orders Ordered: Discontinued Medications Lorazepam (Lorazepam 0.5 Mg Tablet) 0.5 mg PO NOW ONE Stop: 05/19/22 17:13 Last Admin: 05/19/22 17:24 Dose: 0.5 mg Documented By: JEMIMA Vital Signs Vital signs: Vital Signs - 8 hr 05/19/22 16:59 Temperature 98.0 F Pulse Rate 89 Respiratory Rate 14 Blood Pressure 138/78 Pulse Oximetry 99 Oxygen Delivery Method Room Air MDM - Anxiety <Sy FowlerPAUL - Last Filed: 05/19/22 18:18> Differential Diagnosis Differential diagnosis: Likely acute anxiety MDM Narrative Medical decision making narrative: 42-year-old female that presents to the emergency department with a anxiety attack related to the of her family dog. Patient was given Valium in the ED and now feels ready to go. Will prescribe a short course of hydroxyzine to get her through next few days. Recommended she go through the grieving process with her and follow up with her family doctor tomorrow. Discussed plan of care and return precautions with patient, who was agreeable with course of action. Discharge Plan Departure Patient Disposition: Home Clinical Impression: Acute anxiety Instructions: Anxiety and Panic Attacks (Alternative Therapy) Activity Restrictions/Additional Instructions: *You have been diagnosed with an anxiety attack. I am so sorry to hear about the loss of your dog, and I pray that you will eventually find comfort. I recommend you get plenty of rest, cry as needed, stay hydrated and visit with family. I will prescribe you some anti anxiety medications to help you get through the next couple of days. Please follow-up with your family doctor tomorrow. *What to do: *Please continue to take your regular medications as directed. [x ] New medication prescriptions sent to your pharmacy: [[facility]] [ ] New medication written as a paper prescription [ ] No new medications given *Please follow up with your primary care provider in 2-3 days, call for an appointment. Let them know you were seen in the Emergency Department and that we ask that you be seen in follow up. We will electronically transmit a record of today's note if your PCP is in our system *If you do not have a primary care provider please contact the [facility] Resource line at [phone]. They will ask some questions about your medical history and help get you set up with a doctor in the community. ? Return to ER if you should have any new, worsening or concerning symptoms, such as worsening pain, severe headache, confusion, chest pain, difficulty br eathing, fever greater than 101 F, shaking chills, persistent vomiting to the point that you cannot drink fluids, or other new or worsening symptoms. Prescriptions: New hydroxyzine HCl 50 mg tablet 50 mg PO QID PRN (Reason: anxiety) Qty: 14 0RF Referrals: Catie Guadalupe MD [Primary Care Provider] - Visit Report Forms: Patient Portal/API <Gabby Jara DO - Last Filed: 05/25/22 03:58> Cosign ED Attending Nissa Attestation: I was immediately available in the department for consultation. Documentation has been reviewed.
== END 2022-05-19 18:48 | disposition home or self-care (01) ==
PROVIDERS: Emergency Provider Registered Nurse; PCP Student in an Organized Health Care Education/Training Program
DX: F41.9 Anxiety disorder, unspecified (principal)
CPT/HCPCS: 99283

== ENCOUNTER → 2022-05-27 08:13 | Outpatient (CLI) | payer BC, SELFPAY ==
[2022-05-27 10:36] LABS: BUN Creatinine Ratio 22.6 (6-22); Blood Urea Nitrogen 14 mg/dL (7-17); Calcium 9.4 mg/dL (8.4-10.2); Carbon Dioxide 30 mmol/L (22-32); Chloride 99 mmol/L (98-107); Estimated Glomerular Filt Rate > 60 mL/min (>60); Glucose 78 mg/dL (70-100); HEMOLYSIS 18 (0-50); Potassium 4.3 mmol/L (3.4-5.1); Sodium 138 mmol/L (137-145)
[2022-05-27 10:50] LABS: Prolactin 28.5 ng/mL (3.0-18.6)
[2022-05-27 10:51] LABS: Luteinizing Hormone 2.12 mIU/mL
[2022-05-27 11:06] LABS: Testosterone 32.9 ng/dL (5.71-77.0)
[2022-05-27 11:07] LABS: Free T4, Direct Thyroxine 1.46 ng/dL (0.78-2.19)
[2022-05-27 11:20] LABS: Thyroid Stimulating Hormone 1.48 uIU/mL (0.47-4.68)
[2022-05-28 04:43] LABS: Adrenocorticotropic Hormone 16.8 pg/mL (7.2-63.3)
[2022-05-29 23:08] LABS: IGF-1 168 ng/mL (74-239)
== END ==
PROVIDERS: PCP Student in an Organized Health Care Education/Training Program; Referring Provider Neurological Surgery; Visit Provider Neurological Surgery
DX: E23.6 Other disorders of pituitary gland (principal)
CPT/HCPCS: 80048; 82024; 82533; 83001; 83002; 84146; 84305; 84403; 84439; 84443

== ENCOUNTER → 2022-08-14 17:27 | Outpatient (CLI) | payer BC, SELFPAY | PROVIDERS: PCP Student in an Organized Health Care Education/Training Program; Visit Provider Registered Nurse | DX: J02.9 Acute pharyngitis, unspecified (principal) | CPT/HCPCS: 87070 ==

== ENCOUNTER → 2022-09-01 10:51 | Outpatient (CLI) | payer BC, SELFPAY ==
--- NOTE | 2022-09-01 | DI.MG.S_ITS ---
BILATERAL DIGITAL SCREENING MAMMOGRAM 3D/2D WITH CAD: 09/01/2022 CLINICAL: Routine screening. Comparison is made to exams dated: 06/18/2021 mammogram and 04/16/2020 mammogram - [facility]. Both breasts are extremely dense, which lowers the sensitivity of mammography (category d />75% glandular tissue). Current study was also evaluated with a Computer Aided Detection (CAD) system. No significant masses, calcifications, or other findings are seen in either breast. There has been no significant interval change. IMPRESSION: NEGATIVE There is no mammographic evidence of malignancy. A 1 year screening mammogram is recommended. This exam was interpreted at Station ID: [id number]. NOTE: For mammograms, a report in lay terms will be sent to the patient. Approximately 15% of breast malignancies will not be visualized mammographically. In the management of a palpable breast mass, a negative mammogram must not discourage biopsy of a clinically suspicious lesion. Electronically Signed By: Holly daley/annabel:09/01/2022 16:39:38 letter sent: Normal Exam ACR BI-RADS Category 1: Negative [id number]
== END ==
PROVIDERS: PCP Family Medicine; Referring Provider Family Medicine; Visit Provider Family Medicine
DX: Z12.31 Encounter for screening mammogram for malignant neoplasm of breast (principal)
CPT/HCPCS: 77063; 77067

== ENCOUNTER → 2022-12-09 16:14 | Outpatient (CLI) | payer BC, SELFPAY ==
--- NOTE | 2022-12-09 | DI.US.S_ITS ---
PROCEDURE: US PERIPH VENOUS LOW EXTREM RT INDICATIONS: R/O DVT TECHNIQUE: Real-time imaging, as well as color and pulse Doppler interrogation, were performed of the lower extremity deep veins from the inguinal ligament to the popliteal fossa. COMPARISON: None. FINDINGS: The common femoral, femoral and popliteal veins are normally compressible, and free of intraluminal thrombus. Color and pulse Doppler demonstrate normal phasic intraluminal flow. There is normal augmentation response to distal compression maneuver. IMPRESSION: No DVT in the right lower extremity. Dictated by: Cory Hernandez M.D. on 12/09/2022 at 16:52 Approved by: Cory Hernandez M.D. on 12/09/2022 at 16:52
== END ==
PROVIDERS: PCP Family Medicine; Referring Provider Family Medicine; Visit Provider Family Medicine
DX: M79.604 Pain in right leg (principal)
CPT/HCPCS: 93971

== ENCOUNTER 2022-12-13 14:30 | Emergency (ER) | payer BC, SELFPAY ==
[2022-12-13 15:12] VITALS: BP 122/63; PULSE 76; RESP 18; TEMP 37.1; O2SAT 98; BMI 26.5
--- NOTE | 2022-12-13 16:10 | DI.RAD.S_ITS ---
PROCEDURE: XR KNEE RT 3V INDICATIONS: right knee pain TECHNIQUE: 3 views of the knee were acquired. COMPARISON: None. FINDINGS: Bones: No fractures or dislocations. No suspicious bony lesions. Osteophyte of the superior pole of the patella. Mild degenerative changes of the medial and lateral joint space. Soft tissues: No joint effusion. No suspicious soft tissue calcifications. IMPRESSION: Degenerative changes. No acute abnormality. Dictated by: Cory Hernandez M.D. on 12/13/2022 at 16:36 Approved by: Cory Hernandez M.D. on 12/13/2022 at 16:37
--- NOTE | 2022-12-13 16:11 | ED.LOWEXIN ---
HPI - Extremity Injury (Lower) <PAUL Juarez - Last Filed: 12/13/22 17:43> General Chief Complaint: Extremity Injury, Lower Stated Complaint: heard pop in rt kn,rt toes are cold Time Seen by Provider: 12/13/22 15:44 Source: patient Mode of arrival: Wheelchair History of Present Illness HPI Narrative: 42-year-old female, never smoker, presents to the emergency department with right knee pain. Patient states that she was jumping up onto the tailgate of a truck and felt a pop and pain in her right knee that has been painful ever since. Patient has been complaining right popliteal pain for awhile and was recently worked up for a DVT by her family doctor, which was negative. Patient endorses pain along the lateral aspect. Related Data Previous Rx's Medication Instructions Recorded hydroxyzine HCl 50 mg tablet 50 mg PO QID PRN anxiety #14 tabs 05/19/22 oxycodone-acetaminophen 5 mg-325 1 tab PO Q6H PRN pain #10 tabs 12/13/22 mg tablet (Percocet) Allergies Allergy/AdvReac Type Severity Reaction Status Date / Time No Known Drug Allergies Allergy Verified 05/19/22 17:02 Review of Systems <PAUL Juarez - Last Filed: 12/13/22 17:43> Review of Systems Narrative: Narrative: See HPI. GENERAL: Denies chills, fatigue, fever, sweats. HEENT: Denies sinus pain, ear pain, sore throat, difficulty swallowing, dizziness. RESPIRATORY: Denies dyspnea, cough, wheezing, sputum. CARDIOVASCULAR: Denies chest pain, palpitations, edema. GASTROINTESTINAL: Denies nausea, vomiting, abdominal pain, diarrhea, constipation. : Denies dysuria, frequency, incontinence, hematuria, urinary retention, flank pain. MSK: Denies weakness. Endorses right knee pain. SKIN: Denies rash, skin lesions, or pruritis. NEUROLOGIC: Denies weakness, dizziness, headache, numbness, confusion. PSYCHIATRIC: No concerning psychosocial issues. Patient History <PAUL Juarez - Last Filed: 12/13/22 17:43> Social History Smoking Status: Never smoker Smoking Status: Never smoker alcohol intake frequency: a few times a month Substance Use Type: does not use Exam <PAUL Juarez - Last Filed: 12/13/22 17:43> Narrative Exam Narrative: Exam Narrative: GENERAL: This is a well-nourished, well-developed patient, in no acute distress. HEAD: Atraumatic. Normocephalic. EYES: Pupils equal round and reactive. No scleral icterus, injection or drainage. ENT: Nose without bleeding, purulent drainage. Airway patent. NECK: Trachea midline. No JVD. RESPIRATORY: Normal respiratory rate and effort. MSK: Moves all extremities. Normal range of motion, no clubbing or edema. Neurovascularly intact. NEURO: A&O x 3. SKIN: Warm, dry, no rashes or lesions noted. KNEE: There is no swelling, bruising or asymmetry. There is no tenderness to general palpation. There is no joint line tenderness. There is no patellar tenderness. There is no popliteal fullness. Patella tracks normally. Range of motion is limited due to pain. Resistive strength for flexion and extension is intact. Pain is worse with extension. Collateral and cruciate ligaments are intact. Drawer, Baudilio and Lever Tests are negative. Gait is ataxic. The contralateral knee exam is unremarkable. Initial Vital Signs Initial Vital Signs: Vital Signs Temperature 98.8 F 12/13/22 15:12 Pulse Rate 76 12/13/22 15:12 Respiratory Rate 18 12/13/22 15:12 Blood Pressure 122/63 12/13/22 15:12 Pulse Oximetry 98 12/13/22 15:12 Oxygen Delivery Method Room Air 12/13/22 15:12 Reviewed <Shonna Woo DO - Last Filed: 12/18/22 08:09> Initial Vital Signs Initial Vital Signs: Vital Signs Temperature 98.8 F 12/13/22 15:12 Pulse Rate 76 12/13/22 15:12 Respiratory Rate 18 12/13/22 15:12 Blood Pressure 122/63 12/13/22 15:12 Pulse Oximetry 98 12/13/22 15:12 Oxygen Delivery Method Room Air 12/13/22 15:12 Course <PAUL Juarez - Last Filed: 12/13/22 17:43> Orders Ordered: Discontinued Medications Oxycodone/Acetaminophen (Oxycodone/Acetaminophen 5/325 Tablet) 1 tab PO NOW ONE Stop: 12/13/22 16:12 Last Admin: 12/13/22 16:21 Dose: 1 tab Documented By: HUGO Vital Signs Vital signs: Vital Signs - 8 hr 12/13/22 15:12 12/13/22 17:20 Temperature 98.8 F Pulse Rate 76 74 Respiratory Rate 18 Blood Pressure 122/63 126/65 Pulse Oximetry 98 98 Oxygen Delivery Method Room Air Room Air <Shonna Woo DO - Last Filed: 12/18/22 08:09> Orders Ordered: Discontinued Medications Oxycodone/Acetaminophen (Oxycodone/Acetaminophen 5/325 Tablet) 1 tab PO NOW ONE Stop: 12/13/22 16:12 Last Admin: 12/13/22 16:21 Dose: 1 tab Documented By: HUGO Vital Signs Vital signs: Vital Signs - 8 hr 12/13/22 15:12 12/13/22 17:20 Temperature 98.8 F Pulse Rate 76 74 Respiratory Rate 18 Blood Pressure 122/63 126/65 Pulse Oximetry 98 98 Oxygen Delivery Method Room Air Room Air MDM - Extremity Injury (Lower) <PAUL Juarez - Last Filed: 12/13/22 17:43> Differential Diagnosis Differential diagnosis: Likely other (Right knee pain) Imaging Data Extremity x-ray #1: My Impression: Normal knee. Radiologist's Impression: [place] [address] XRay Report Signed Patient: Eliz Sorensen MR#: [id number] : 1980 Acct:[id number] Age/Sex: 42 / F Date of Service: 12/13/22 Loc: ED Accession Number: [id number] ?? Procedure: XR knee RT 3V Ordering Provider: Sy Fowler PROCEDURE:? XR KNEE RT 3V ? INDICATIONS:? right knee pain ? TECHNIQUE:? 3 views of the knee were acquired.? ? COMPARISON:? None. ? FINDINGS:? ? Bones:? No fractures or dislocations.? No suspicious bony lesions.? Osteophyte of the superior pole of the patella.? Mild degenerative changes of the medial and lateral joint space. ? Soft tissues:? No joint effusion.? No suspicious soft tissue calcifications.? ? ? IMPRESSION:? Degenerative changes.? No acute abnormality. ? ? Dictated by: Cory Hernandez M.D. on 12/13/2022 at 16:36 ? ? Approved by: Croy Hernandez M.D. on 12/13/2022 at 16:37 ? MDM Narrative Medical decision making narrative: 42-year-old female presents to the emergency department with right knee pain since this morning. Patient is very tearful with any manipulation however assessment was encouraging and knee feels stable. Patient given a Percocet prior to x-ray. X-ray was negative. Will treat patient with Rest (modified activity), along with ice, compression wrap/splint-immobilize as directed, crutches and elevation above heart. Tylenol or Ibuprofen for discomfort. Will place a referral for Orthopedics. Short course of pain medications prescribed for breakthrough pain. Discussed plan of care and return precautions with patient, who verbalized understanding and was agreeable with course of action. Discharge Plan Departure Patient Disposition: Home Clinical Impression: Acute knee pain Instructions: DI for Knee Sprain, DI for Knee Pain Activity Restrictions/Additional Instructions: *You have been diagnosed with right knee pain. Your x-ray was negative and my assessment was encouraging. We have placed you in a knee immobilizer and crutches for comfort. Recommended supportive care such as Rest (modified activity), along with ice, compression wrap/splint-immobilize as directed and elevation above heart. Tylenol or Ibuprofen for discomfort. We have placed a referral for Orthopedics, but may need a referral from your family doctor, depending on your insurance. Will give you a short course of pain medications for breakthrough pain, but should be able to manage your discomfort with Tylenol or ibuprofen. *What to do: *Please continue to take your regular medications as directed. [x ] New medication prescriptions sent to your pharmacy: [[facility]] [ ] New medication written as a paper prescription [ ] No new medications given *Please follow up with your primary care provider in 2-3 days, call for an appointment. Let them know you were seen in the Emergency Department and that we ask that you be seen in follow up. We will electronically transmit a record of today's note if your PCP is in our system *If you do not have a primary care provider please contact the [facility] Resource line at [phone]. They will ask some questions about your medical history and help get you set up with a doctor in the community. ? Return to ER if you should have any new, worsening or concerning symptoms, such as worsening pain, severe headache, confusion, chest pain, difficulty breathing, fever greater than 101 F, shaking chills, persistent vomiting to the point that you cannot drink fluids, or other new or worsening symptoms. Prescriptions: New oxycodone-acetaminophen [Percocet] 5-325 mg tablet 1 tab PO Q6H PRN (Reason: pain) Qty: 10 0RF No Action hydroxyzine HCl 50 mg tablet 50 mg PO QID PRN (Reason: anxiety) Qty: 14 0RF Referrals: Tristin Simpson MD [Physician] - (Please evaluate and treat right knee pain.) James Anderson MD [Primary Care Provider] - Stand Alone Forms: Patient Portal/API <Shonna Woo DO - Last Filed: 12/18/22 08:09> Cosign ED Attending Nissa Attestation: I was immediately available in the department for consultation. Documentation has been reviewed.
[2022-12-13] MEDS: OXYCODONE/ACETAMINOPHEN 5/325 TABLET 1 TAB PO (16:21)
[2022-12-13 17:20] VITALS: BP 126/65; PULSE 74; O2SAT 98
== END 2022-12-13 17:22 | disposition home or self-care (01) ==
PROVIDERS: Emergency Provider Registered Nurse; PCP Family Medicine
DX: M25.561 Pain in right knee (principal); Y93.39 Activity, other involving climbing, rappelling and jumping off
CPT/HCPCS: 29530; 73562; 99283

== ENCOUNTER → 2022-12-14 18:58 | Outpatient (CLI) | payer BC, SELFPAY ==
--- NOTE | 2022-12-14 | DI.MRI.S_ITS ---
PROCEDURE: MR KNEE RT WO CON INDICATIONS: KNEE LOCKING/MENISCAL TEAR TECHNIQUE: Noncontrast sagittal PD fast spin echo and T2 fast spin echo with fat saturation, sagittal 3-D FLASH with fat saturation; coronal T1 spin echo and PD fast spin echo with fat saturation, and axial PD fast spin echo with fat saturation through the knee. COMPARISON: [facility], MR, KNEE WITHOUT CONTRAST, 10/02/2013, 7:49. FINDINGS: Image quality: Excellent. Menisci: There is a severe focal partial tear of the posterior meniscal root ligament of the medial meniscus. Mild intrasubstance T2 hyperintensity is demonstrated within the posterior horn of the medial meniscus consistent with degeneration. Lateral meniscus appears intact. Cruciate ligaments: The anterior and posterior cruciate ligaments appear intact. Medial structures: The medial collateral ligament appears intact. The semimembranosus tendon insertions and meniscocapsular junction appear intact. Visualized portions of the pes anserinus tendons appear intact without associated bursal fluid collections. Lateral structures: The lateral collateral ligament, long and short heads of the biceps femoris tendon appear intact. The popliteus tendon appears intact. Iliotibial band appears normal. Anterior structures: The quadriceps and patellar tendons appear intact. Patellar alignment is normal. No femoral trochlear dysplasia or ventral trochlear prominence. No edema in the infrapatellar fat pad. Bones and cartilage: No bone marrow contusions or fractures. There is mild cartilage thinning in the medial compartment with superficial chondral fraying. In the lateral compartment, the articular cartilage appears preserved in thickness. In the patellofemoral compartment, there is mild cartilage thinning medially with mild superficial chondral fraying along the medial patellar facet. Joint space: There is a small joint effusion. There is a moderate-sized Johnson's cyst. Normal appearing synovial plicae are incidentally noted. IMPRESSION: 1. Severe focal partial tear of the medial meniscal root ligament. 2. Small joint effusion. 3. Moderate-sized Johnson's cyst. 4. Mild chondral degeneration in the medial compartment and patellofemoral compartment medially. Dictated by: Brock Montana M.D. on 12/15/2022 at 1:46 Approved by: Brock Montana M.D. on 12/15/2022 at 1:51
== END ==
PROVIDERS: PCP Family Medicine; Referring Provider Physician Assistant Medical; Visit Provider Physician Assistant Medical
DX: S83.8X1A Sprain of other specified parts of right knee, initial encounter; M25.461 Effusion, right knee; M71.21 Synovial cyst of popliteal space [Baker], right knee; M23.91 Unspecified internal derangement of right knee
CPT/HCPCS: 73721

== ENCOUNTER → 2022-12-25 19:41 | Outpatient (CLI) | payer BC, SELFPAY ==
--- NOTE | 2022-12-25 19:43 | DI.MRI.S_ITS ---
PROCEDURE: MR LUMBAR SPINE WO CON INDICATIONS: Spondylosis without myelopathy or radiculopathy TECHNIQUE: Noncontrast sagittal T1 spin echo and T2 fast echo, sagittal STIR, and T2 fast spin echo through the lumbar spine. In cases with scoliosis, additional coronal T2 fast spin echo may be performed. COMPARISON: None. FINDINGS: Image quality: Excellent. Alignment and Curvature: There is normal bony alignment. Bone Marrow: Marrow is of normal overall signal. No acute vertebral body compression fractures. Spinal Cord: Conus medullaris terminates at the L1 level. Visualized cord demonstrates normal signal and size. Paraspinous Soft Tissues: No paravertebral masses. T12-L1: Normal appearance. L1-L2: Normal appearance. L2-L3: Normal appearance. L3-L4: Normal appearance. L4-L5: There is a 0.9 x 0.5 x 0.6 cm posterior central disc protrusion. No canal stenosis. There is severe facet and ligamentum flavum hypertrophy. There is mild bilateral neural foraminal stenosis. L5-S1: Mild disc desiccation and height loss. There is a left paracentral 0.6 x 1.1 x 0.8 cm probable extruded disc fragment. This abuts the exiting left nerve roots. There is moderate epidural lipomatosis in this region. No canal stenosis. There is severe facet and ligamentum flavum hypertrophy. There is mild right and moderate left foraminal stenosis. IMPRESSION: 1. Small central disc protrusion at L4-5 without canal stenosis or foraminal narrowing. 2. Probable extruded disc fragment in the left paracentral L5-S1 region. However, contrast enhanced MRI of the lumbar spine is recommended in this region to exclude other extra medullary mass lesions. 3. Moderate left L5-S1 foraminal stenosis. No other foraminal stenosis or canal stenosis of the lumbar spine. 4. Severe facet and ligamentum flavum hypertrophy at L4-5 and L5-S1. Dictated by: Elza Angela M.D. on 12/28/2022 at 8:33 Approved by: Elza Angela M.D. on 12/28/2022 at 8:40
== END ==
PROVIDERS: PCP Family Medicine; Referring Provider Physical Medicine & Rehabilitation; Visit Provider Physical Medicine & Rehabilitation
DX: M47.816 Spondylosis without myelopathy or radiculopathy, lumbar region (principal); M51.26 Other intervertebral disc displacement, lumbar region; M51.27 Other intervertebral disc displacement, lumbosacral region; M48.07 Spinal stenosis, lumbosacral region
CPT/HCPCS: 72148

== ENCOUNTER → 2023-01-12 15:28 | Outpatient (CLI) | payer BC, SELFPAY ==
--- NOTE | 2023-01-12 | DI.MRI.S_ITS ---
PROCEDURE: MR LUMBAR SPINE WO/W CON INDICATIONS: spondylosis w/o myelopathy or radiculopathy TECHNIQUE: Noncontrast sagittal T1 spin echo and T2 fast spin echo, sagittal STIR, axial T1 and T2 fast spin echo through the lumbar spine. In cases with scoliosis, additional coronal T2 fast spin echo may be performed. After the administration of contrast, sagittal and axial T1 spin echo with fat saturation through the lumbar spine. COMPARISON: None. FINDINGS: Image quality: Excellent. Alignment and curvature: There is normal bony alignment. Marrow: Marrow is of normal overall signal. No acute vertebral body compression fractures. No suspicious marrow enhancement. Spinal cord: Conus medullaris terminates at the L1 level. Visualized spinal cord demonstrates normal signal, without suspicious enhancement. Paraspinous soft tissues: Along the posterior paraspinous soft tissues inferiorly, there is generalized increased enhancement seen adjacent to the L4-L5 and L5-S1 facet joints. No paravertebral masses. An apparent left renal cyst is incidentally noted, as on series 5, image 1, measuring 1.7 cm. T12-L1: Normal appearance. L1-L2: Normal appearance. L2-L3: Normal appearance. L3-L4: Normal appearance. L4-L5: The disc height is well-preserved. Loss of disc signal is seen at this level. Mild disc bulge is seen, with a central disc protrusion. Moderate facet joint hypertrophy is seen. There is mild left-sided and moderate right-sided neural narrowing. Mild central canal narrowing is seen. No significant change from the prior. L5-S1: The disc height is well-preserved. Loss of disc signal is seen at this level. Mild to moderate disc bulge is seen, which is eccentric to the left. There is a central/left disc extrusion, with inferior migration of the disc material. Adjacent to the disc extrusion, there is a sequestered disc fragment seen, which measures up to a cm, as on series 3, image 9. Mild facet joint hypertrophy is seen. Mild to moderate bilateral neural foraminal narrowing can be seen. No significant central canal narrowing can be seen. IMPRESSION: Stable lumbar spine degenerative changes are seen, including a sequestered disc fragment at the L5-S1 level. On this postcontrast study, there is soft tissue enhancement seen adjacent to the L4-L5 and L5-S1 facets posteriorly. Infection or inflammatory change is considered to be most likely. Please consider short-term follow-up. Dictated by: Hang Figueroa M.D. on 01/12/2023 at 15:53 Approved by: Hang Figueroa M.D. on 01/12/2023 at 15:59
== END ==
PROVIDERS: PCP Family Medicine; Referring Provider Physical Medicine & Rehabilitation; Visit Provider Physical Medicine & Rehabilitation
DX: M47.816 Spondylosis without myelopathy or radiculopathy, lumbar region (principal); M51.27 Other intervertebral disc displacement, lumbosacral region
CPT/HCPCS: 72158; A9579

== ENCOUNTER → 2023-07-26 17:27 | Outpatient (CLI) | payer BC, SELFPAY ==
--- NOTE | 2023-07-26 17:28 | DI.MRI.S_ITS ---
PROCEDURE: MR KNEE RT WO CON INDICATIONS: RIGHT KNEE PAIN TECHNIQUE: Noncontrast sagittal PD fast spin echo and T2 fast spin echo with fat saturation, sagittal 3-D FLASH with fat saturation; coronal T1 spin echo and PD fast spin echo with fat saturation, and axial PD fast spin echo with fat saturation through the knee. COMPARISON: [facility], MR, MR KNEE RT WO CON, 12/14/2022, 19:33. FINDINGS: Image quality: Excellent. Anterior Cruciate Ligament: Intact. Posterior Cruciate Ligament: Intact. Medial Collateral Ligament: Intact. Lateral Collateral Ligament: Intact. Medial Meniscus: Focal deep radial tearing again noted at the posterior root attachment of the medial meniscus. There is mild intrasubstance signal and extrusion of the meniscal body that does not appear significantly changed when compared to the MRI from 12/14/2022. Lateral Meniscus: Intact. Medial and Lateral Tendons: The semimembranosus tendon insertions and meniscocapsular junction appear intact. Visualized portions of the pes anserinus tendons appear normal. No abnormal bursal fluid. The long and short heads of the biceps femoris tendon appear intact. The popliteus tendon appears intact. No signs of posterolateral corner injury. Iliotibial band appears normal. Anterior Structures: Enthesophytes are seen at the distal quadriceps tendon insertion. The patellar tendon is intact. No patellar subluxation. No femoral trochlear dysplasia or ventral trochlear prominence. No edema in the infrapatellar fat pad. Bones: No acute trabecular bone injury or fracture. Medial Femorotibial Cartilage: There is high-grade partial-thickness cartilage thinning irregularity in the weight-bearing portion of the medial femorotibial compartment with subchondral edema and small marginal osteophytes. Degree of cartilage loss has mildly progressed and the subchondral edema is new when compared to the prior MRI. Lateral Femorotibial Cartilage: Intact. Patellofemoral Cartilage: Mild partial-thickness cartilage irregularity is seen at the trochlear groove as well as the medial facet and median ridge of the patella. Soft Tissues: A small to moderate joint effusion is present. Moderate medial popliteal cyst with fluid tracking inferiorly along the medial hamstring tendons. The musculature surrounding the knee is normal in bulk. IMPRESSION: 1. Focal deep radial tearing of the medial meniscus at the posterior root attachment does not appear significantly changed when compared to the MRI from 12/14/2022. There is mild extrusion of the meniscal body with intrasubstance degeneration. 2. 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 There is grade 2 chondromalacia in the patellofemoral compartment. 3. Cruciate and collateral ligaments are intact. No acute trabecular bone injury. 4. Small to moderate joint effusion. Moderate medial popliteal cyst with fluid tracking inferiorly along the medial hamstring tendons versus separate pes anserine bursal effusion. Approved by: Jose Cruz Goel M.D. on 07/27/2023 at 10:30
== END ==
PROVIDERS: PCP Family Medicine; Referring Provider Family Medicine; Visit Provider Family Medicine
DX: S83.241A Other tear of medial meniscus, current injury, right knee, initial encounter (principal); M22.41 Chondromalacia patellae, right knee; M25.461 Effusion, right knee; M71.21 Synovial cyst of popliteal space [Baker], right knee
CPT/HCPCS: 73721

== ENCOUNTER 2023-08-02 16:28 | Emergency (ER) | payer BC, SELFPAY ==
[2023-08-02] VITALS (11 sets, daily range): BP systolic 120–157; BP diastolic 64–79; PULSE 51–74; RESP 14–49; TEMP 36.7; O2SAT 95–99; BMI 27.4
--- NOTE | 2023-08-02 16:38 | DI.RAD.S_ITS ---
PROCEDURE: XR CHEST 1V INDICATIONS: chest pain TECHNIQUE: One view of the chest was acquired. COMPARISON: [facility], CR, XR CHEST 1V, 12/26/2021, 11:28. FINDINGS: Surgical changes and devices: None. Lungs and pleura: Lungs are clear. No pleural effusions or pneumothorax. Mediastinum: Mediastinal contours appear normal. Heart size is normal. Bones and chest wall: No suspicious bony lesions. Overlying soft tissues appear unremarkable. IMPRESSION: No acute cardiopulmonary disease. Dictated by: Riky Nice M.D. on 08/02/2023 at 17:02 Approved by: Riky Nice M.D. on 08/02/2023 at 17:02
[2023-08-02 17:10] LABS: Prothrombin Time 11.2 SECONDS (10.1-12.7)
[2023-08-02 17:13] LABS: PTT Partial Thromboplastin Tim 32 SECONDS (26-36)
[2023-08-02 17:16] LABS: Alanine Aminotransferase 20 IU/L (<35); Albumin 4.5 g/dL (3.5-5.0); Albumin Globulin Ratio 1.5 (1.0-2.8); Alkaline Phosphatase 73 U/L (38-126); Aspartate Aminotransferase 23 IU/L (14-36); BUN Creatinine Ratio 29.1 (6-22); Bilirubin Total 0.3 mg/dL (0.2-1.3); Blood Urea Nitrogen 16 mg/dL (7-17); Calcium 9.8 mg/dL (8.4-10.2); Carbon Dioxide 27 mmol/L (22-32); Chloride 100 mmol/L (98-107); Creatine Kinase 70 U/L (30-135); Estimated Glomerular Filt Rate > 60 mL/min (>60); Glucose 131 mg/dL (70-100); HEMOLYSIS 18 (0-50); Lipase 133 U/L (23-300); Potassium 3.5 mmol/L (3.4-5.1); Sodium 136 mmol/L (137-145); Total Protein 7.5 g/dL (6.3-8.2)
[2023-08-02 17:21] LABS: Add Manual Diff / Slide Review NO; Basophils Absolute Auto 100 /uL (0-100); Eosinophils Absolute Auto 100 /uL (0-450); Eosinophils Percent Auto 0.8 % (2-4); Hematocrit 41.9 % (36-46); Hemoglobin 14.4 g/dL (12.0-16.0); Lymphocytes Absolute Auto 4200 /uL (1100-4500); Lymphocytes Percent Auto 47.7 % (25-40); Mean Corpuscular HGB Conc 34.5 % (30-36); Mean Corpuscular Hemoglobin 31.4 PG (26-34); Mean Corpuscular Volume 91.1 fL (80-100); Monocytes Absolute Auto 600 /uL (0-900); Monocytes Percent Auto 6.9 % (3-14); Neutrophils Absolute Auto 3800 /uL (1500-7000); Neutrophils Percent Auto 43.6 % (50-75); Platelet Count 297 X10^3/uL (150-400); Red Cell Distribution Width 12.8 % (11.6-14.8); White Blood Cell Count 8.7 X10^3/uL (4.5-11.0)
[2023-08-02 17:27] LABS: Troponin I < 0.012 ng/mL (0.01-0.034)
--- NOTE | 2023-08-02 17:36 | PC.NURSE ---
Has felt off for the last month, reports sitting at her desk sudden chest tightness. Pain radiated down left arm tingling in hand. [place] slightly nauseated but no vomiting. Patient states at worst 7/10, now 4/10. Denies any abnormal stools, states last colonoscopy 4 yrs ago family history of colon cancer. Patient reports frequent use of Ibuprofen and Diclofenac for pain. Reports some pain/burning radiating up neck
--- NOTE | 2023-08-02 18:01 | ED_ITS ---
HPI - Chest Pain General Chief Complaint: Chest Pain Stated Complaint: CHEST PAIN Time Seen by Provider: 08/02/23 17:59 Source: patient Mode of arrival: Ambulatory Limitations: no limitations History of Present Illness HPI narrative: 43-year-old female nonsmoker with history of reflux presents with a chief complaint of about a month if not more of episodes of burning central chest pressure. She states that it seems to be there more often than not but is largely without any obvious pattern. She denies any obvious provocation or palliation. She states that today she started having a bit more intense discomfort that seemed to go up into her throat and over into her shoulder which is why she came in. She denies exertional symptoms or exercise intolerance. She denies any associated symptoms such as dizziness, weakness or lightheadedness. She denies any shortness of breath, cough or injury. She denies any recent travel, hemoptysis history of smoking, blood clot or lower extremity pain, swelling or redness. She denies any medication or dietary change. She does state that she gets routine EGDs and colonoscopy due to a family history of colon cancer in on the last EGD she was told that she had H pylori Related Data Previous Rx's Medication Instructions Recorded hydroxyzine HCl 50 mg tablet 50 mg PO QID PRN anxiety #14 tabs 05/19/22 oxycodone-acetaminophen 5 mg-325 1 tab PO Q6H PRN pain #10 tabs 12/13/22 mg tablet (Percocet) pantoprazole 40 mg tablet,delayed 40 mg PO DAILY #30 tabs 08/02/23 release (Protonix) Allergies Allergy/AdvReac Type Severity Reaction Status Date / Time No Known Drug Allergies Allergy Verified 05/19/22 17:02 Review of Systems Review of Systems Narrative: GENERAL: Denies chills, fatigue, malaise, fever, sweats. HEENT: Denies sinus pain, ear pain, sore throat, difficulty swallowing, dizziness. RESPIRATORY: Denies dyspnea, cough, wheezing, hemoptysis, sputum. CARDIOVASCULAR: See HPI GASTROINTESTINAL: Denies nausea, vomiting, abdominal pain, diarrhea, constipation, melena. : Denies dysuria, frequency, incontinence, hematuria, urinary retention. MUSCULOSKELETAL: denies weakness, joint pain, or bony pain SKIN: Denies rash, skin lesions, or other NEUROLOGIC: Denies weakness, headache, numbness, change in speech, confusion, seizures, incoordination. PSYCHIATRIC: No concerning psychosocial issues. 12 point review of systems is negative except for those stated above Patient History Social History Smoking Status: Never smoker Smoking Status: Never smoker alcohol intake frequency: a few times a month Substance Use Type: does not use Exam Narrative Exam Narrative: GENERAL: [43] year old patient appears stated age. Well-developed patient, in mild distress. HEAD: Atraumatic. Normocephalic. EYES: Pupils equal round and reactive. Extraocular motions intact. No scleral icterus. No injection or drainage. ENT: Nose without bleeding, purulent drainage. Throat without erythema, tonsillar hypertrophy or exudate. Airway patent. NECK: Trachea midline. Non tender CARDIOVASCULAR: Regular rate and rhythm without murmurs, gallops, or rubs. RESPIRATORY: Clear to auscultation. Breath sounds equal bilaterally. No wheezes, rales, or rhonchi. GASTROINTESTINAL: Abdomen soft, non-tender, nondistended. EXTREMITIES: No edema or joint tenderness. BACK: Nontender without deformity or crepitance. No flank tenderness. NEURO: AOx3. SKIN: No rash or erythema of visible areas Initial Vital Signs Initial Vital Signs: Vital Signs Temperature 98.1 F 08/02/23 16:32 Pulse Rate 74 08/02/23 16:32 Respiratory Rate 18 08/02/23 16:32 Blood Pressure 150/79 H 08/02/23 16:32 Pulse Oximetry 98 08/02/23 16:32 Oxygen Delivery Method Room Air 08/02/23 16:32 Scores HEART Score Heart Score history: Slightly Suspicious Heart Score EKG: Normal Heart Score Age: < 45 years old Heart Score risk factors: No known risk factors Heart Score troponin: < or = to normal limit Heart Score Total: 0 Course Orders Ordered: ED Orders 08/02/23 19:49 Troponin & CK Cardiac Panel Stat Discontinued Medications Aspirin (Aspirin 81 Mg Chew Tab) 324 mg PO NOW ONE Stop: 08/02/23 16:39 Last Admin: 08/02/23 18:04 Dose: Not Given Documented By: GIBRAN Al Hydrox/Mg Hydrox/Simethicone 20 ml/ Lidocaine HCl 15 ml 0 ml PO NOW ONE Stop: 08/02/23 20:38 Last Admin: 08/02/23 21:02 Dose: 35 ml Documented By: GIBRAN Sodium Chloride (Normal Saline 0.9%) 1,000 mls @ 1,000 mls/hr IV BOLUS ONE Stop: 08/02/23 19:19 Last Infusion: 08/02/23 19:50 Dose: Infused Documented By: Admin: 08/02/23 18:34 Dose: 1,000 mls/hr Documented By: GIBRAN Pantoprazole Sodium (Pantoprazole 40 Mg Vial) 40 mg IV NOW ONE Stop: 08/02/23 18:21 Last Admin: 08/02/23 18:32 Dose: 40 mg Documented By: GIBRAN Vital Signs Vital signs: Vital Signs - 8 hr 08/02/23 18:00 08/02/23 18:01 08/02/23 18:01 Pulse Rate 58 L 56 L Respiratory Rate 14 15 Blood Pressure 129/64 Pulse Oximetry 95 96 Oxygen Delivery Method 08/02/23 18:30 08/02/23 18:30 08/02/23 19:00 Pulse Rate 55 L 51 L Respiratory Rate 15 49 H Blood Pressure 135/64 Pulse Oximetry 97 99 Oxygen Delivery Method 08/02/23 19:00 08/02/23 19:30 08/02/23 19:30 Pulse Rate 56 L Respiratory Rate 20 Blood Pressure 144/77 H 133/76 Pulse Oximetry 99 Oxygen Delivery Method 08/02/23 20:00 08/02/23 20:00 08/02/23 20:30 Pulse Rate 60 64 Respiratory Rate 19 19 Blood Pressure 130/66 Pulse Oximetry 95 96 Oxygen Delivery Method Room Air 08/02/23 20:30 08/02/23 21:00 08/02/23 21:00 Pulse Rate 68 Respiratory Rate 18 Blood Pressure 120/67 126/67 Pulse Oximetry 96 Oxygen Delivery Method 08/02/23 21:30 08/02/23 21:30 Pulse Rate 63 Respiratory Rate 16 Blood Pressure 132/69 Pulse Oximetry 95 Oxygen Delivery Method MDM - Chest Pain Lab Data 08/02/23 16:45 08/02/23 16:45 Labs: Lab Results 08/02/23 08/02/23 08/02/23 Range/Units 16:15 16:45 19:49 WBC 8.7 (4.5-11.0) X10^3/uL RBC 4.60 (4.0-5.2) X10^6/uL Hgb 14.4 (12.0-16.0) g/dL Hct 41.9 (36-46) % MCV 91.1 (80-100) fL MCH 31.4 (26-34) PG MCHC 34.5 (30-36) % RDW 12.8 (11.6-14.8) % Plt Count 297 (150-400) X10^3/uL Neut % (Auto) 43.6 L (50-75) % Lymph % (Auto) 47.7 H (25-40) % [place] % (Auto) 6.9 (3-14) % Eos % (Auto) 0.8 L (2-4) % Baso % (Auto) 1.0 (0-2) % Neut # (Auto) 3800 (3312-5357) /uL Lymph # (Auto) 4200 (4631-2501) /uL [place] # (Auto) 600 (0-900) /uL Eos # (Auto) 100 (0-450) /uL Baso # (Auto) 100 (0-100) /uL PT 11.2 (10.1-12.7) SECONDS INR 1.0 (0.9-1.3) APTT 32 (26-36) SECONDS D-Dimer < 215 (<500) ng/ml Sodium 136 L (137-145) mmol/L Potassium 3.5 (3.4-5.1) mmol/L Chloride 100 (98-107) mmol/L Carbon Dioxide 27 (22-32) mmol/L BUN 16 (7-17) mg/dL Creatinine 0.55 (0.52-1.04) mg/dL Estimated GFR > 60 (>60) mL/min BUN/Creatinine Ratio 29.1 H (6-22) Glucose 131 H (70-100) mg/dL Calcium 9.8 (8.4-10.2) mg/dL Magnesium 2.0 (1.6-2.3) mg/dL Total Bilirubin 0.3 (0.2-1.3) mg/dL AST 23 (14-36) IU/L ALT 20 (<35) IU/L Alkaline Phosphatase 73 (38-126) U/L Total Creatine Kinase 70 57 (30-135) U/L Troponin I < 0.012 < 0.012 (0.01-0.034) ng/mL Total Protein 7.5 (6.3-8.2) g/dL Albumin 4.5 (3.5-5.0) g/dL Globulin 3.0 (1.7-4.1) g/dL Albumin/Globulin Ratio 1.5 (1.0-2.8) Lipase 133 (23-300) U/L ECG Data Interpretation: [1657 EKG is normal sinus rhythm rate [ 64] and free of any signs of ischemia or ectopy. No ST segmental elevation or depression. No T wave inversions MDM Narrative Medical decision making narrative: [43] year old patient presents with chest pain Multiple etiologies for patient's symptoms considered including, but not limited to: [cardiac ischemia vs. PE vs. pneumonia vs. GERD vs. other] Prior Charts reviewed in our EMR Primary Historian: patient Labs reviewed and interpreted by myself: No leukocytosis or left shift, no signs of anemia, D-dimer below cutoff, troponin negative x2 Imaging reviewed: Chest x-ray without acute process Patient's history and physical exam are reassuring. Low heart score, no exertional symptoms, no exercise intolerance, nonischemic EKG and troponin negative x2, cardiac ischemia thought extremely unlikely. Pulmonary embolism considered but thought unlikely with low D-dimer. Imaging unremarkable and no primary respiratory complaints, pneumonia and other primary pulmonary disease considered unlikely. Other diagnoses such as reflux, esophageal spasm or even musculoskeletal thought most likely at this point. Symptomatic treatment indicated, close follow-up with primary care provider and instructions for return precautions which include but are not limited to worsening or more persistent discomfort, other associated symptoms such as shortness of breath, vomiting, etc. Patient's symptoms improved over duration of stay with above-stated therapies. Findings and discharge diagnosis discussed with patient/family followed by verbalization of understanding Return precautions discussed with patient/family whom verbalize understanding of diagnosis and plan Discharge Plan Departure Patient Disposition: Home Clinical Impression: Atypical chest pain Instructions: DI for Atypical Chest Pain Activity Restrictions/Additional Instructions: *You have been diagnosed with [atypical chest pain. As we discussed your history and physical exam are reassuring and there is no evidence of heart attack, blood clot, pneumonia or other significant or life-threatening diagnosis that would require a specific or immediate intervention] *What to do: *Please continue to take your regular medications as directed. [ x] New medication prescriptions sent to your pharmacy: [facility] ] [ ] New medication written as a paper prescription [ ] No new medications given *Please follow up with your primary care provider in 2-3 days, call for an appointment. Let them know you were seen in the Emergency Department and that we ask that you be seen in follow up. We will electronically transmit a record of today's note if your PCP is in our system *Return to Emergency Department if you should have any new, worsening or concerning symptoms, such as [fever greater than 101 F, shaking chills, worsening pain, persistent vomiting or other bothersome symptoms] Prescriptions: New pantoprazole [Protonix] 40 mg tablet,delayed release (DR/EC) 40 mg PO DAILY Qty: 30 0RF No Action hydroxyzine HCl 50 mg tablet 50 mg PO QID PRN (Reason: anxiety) Qty: 14 0RF oxycodone-acetaminophen [Percocet] 5-325 mg tablet 1 tab PO Q6H PRN (Reason: pain) Qty: 10 0RF Referrals: James Anderson MD [Primary Care Provider] - Stand Alone Forms: Patient Portal/API
[2023-08-02] MEDS: PANTOPRAZOLE 40 MG VIAL IV (18:32)
[2023-08-02] MEDS: SODIUM CHLORIDE 0.9% 1,000 ML 1000 ML IV (18:34)
[2023-08-02 19:08] LABS: D Dimer < 215 ng/ml (<500)
[2023-08-02 20:20] LABS: Creatine Kinase 57 U/L (30-135)
[2023-08-02 20:31] LABS: Troponin I < 0.012 ng/mL (0.01-0.034)
[2023-08-02] MEDS: MAG HYDROX/ALUMINUM/SIMETH SUS 20 ML, LIDOCAINE VISCOUS 2% 15 ML PO (21:02)
== END 2023-08-02 21:47 | disposition home or self-care (01) ==
PROVIDERS: Emergency Medicine; Emergency Provider Emergency Medicine; PCP Family Medicine
DX: R07.89 Other chest pain (principal)
CPT/HCPCS: 36415; 71045; 80053; 82550; 83690; 83735; 84484; 85025; 85379; 85610; 85730; 93005; 93010; 96361; 96374; 99284; C9113

== ENCOUNTER → 2023-09-03 12:06 | Outpatient (CLI) | payer BC, SELFPAY ==
--- NOTE | 2023-09-03 | DI.MG.S_ITS ---
BILATERAL DIGITAL SCREENING MAMMOGRAM 3D/2D WITH CAD: 09/03/2023 CLINICAL: Routine screening. Comparison is made to exams dated: 09/01/2022 mammogram, 06/18/2021 mammogram, and 04/16/2020 mammogram - [facility]. Both breasts are heterogeneously dense, which may obscure small masses (category c / 51-75% glandular tissue). Current study was also evaluated with a Computer Aided Detection (CAD) system. No significant masses, calcifications, or other findings are seen in either breast. There has been no significant interval change. IMPRESSION: NEGATIVE There is no mammographic evidence of malignancy. A 1 year screening mammogram is recommended. Based on the Tyrer Cuzick model (a risk assessment model) the patient's lifetime risk is 12.9% and her 10 year risk is 2.1%. According to the ACR, ACS, and NCCN guidelines, an annual breast MRI exam along with mammogram is recommended if the patient's lifetime risk is 20% or greater. This exam was interpreted at Station ID: [id number]. NOTE: For mammograms, a report in lay terms will be sent to the patient. Approximately 15% of breast malignancies will not be visualized mammographically. In the management of a palpable breast mass, a negative mammogram must not discourage biopsy of a clinically suspicious lesion. Electronically Signed By: Dat meza/annabel:09/03/2023 17:49:26 letter sent: Normal Exam ACR BI-RADS Category 1: Negative 3341F
== END ==
PROVIDERS: PCP Family Medicine; Referring Provider Family Medicine; Visit Provider Family Medicine
DX: Z12.31 Encounter for screening mammogram for malignant neoplasm of breast (principal)
CPT/HCPCS: 77063; 77067

== ENCOUNTER 2023-10-03 11:57 | Emergency (ER) | payer BC, SELFPAY ==
[2023-10-03 12:02] VITALS: BP 149/80; PULSE 74; RESP 16; TEMP 36.9; O2SAT 96; BMI 27.4
--- NOTE | 2023-10-03 12:08 | DI.US.S_ITS ---
PROCEDURE: US PERIPH VENOUS LOW EXTREM RT INDICATIONS: PAIN, EDEMA 6 DAYS POST OP TECHNIQUE: Real-time imaging, as well as color and pulse Doppler interrogation, were performed of the lower extremity deep veins from the inguinal ligament to the popliteal fossa, with documentation of the visualized calf veins. COMPARISON: [facility], PERIP VENOUS LOW EXTREM RT, 12/09/2022, 16:33. FINDINGS: The common femoral, femoral, popliteal, and the visualized calf veins are normally compressible, and free of intraluminal thrombus. Color and pulse Doppler demonstrate normal phasic intraluminal flow. There is normal augmentation response to distal compression maneuver. Incidental noted popliteal cyst measuring 6 x 2.5 cm. IMPRESSION: No findings of lower extremity deep venous thrombosis. Dictated by: Riaz Wade M.D. on 10/03/2023 at 13:58 Approved by: Riaz Wade M.D. on 10/03/2023 at 13:59
[2023-10-03 14:41] VITALS: BP 156/78; PULSE 81; RESP 14; O2SAT 99
[2023-10-03 14:49] VITALS: PULSE 68
--- NOTE | 2023-10-03 16:02 | ED.EXTPRO ---
HPI - Extremity Problem General Chief complaint: Extremity Problem,Nontraumatic Stated complaint: leg pain post surgery Time Seen by Provider: 10/03/23 16:02 Source: patient Mode of arrival: Ambulatory History of Present Illness HPI Narrative: 43-year-old female with a history of meniscal surgery on 09/27/2023 for her right knee. Patient states the day following had quite a bit of swelling was encouraged to take off her wraps by her orthopedic team. She noticed her calf seemed quite swollen and there has been swelling down the calf. She is had calf pain as well as in the knee and in the inner thigh. She feels like there has been a little bit of warmth. Does not describe any redness. Has had low-grade fevers at home. Patient states pain has been present not rapidly worsening but not completely controlled with [place]. She has been taking an aspirin 81 mg daily for DVT prophylaxis. Patient states she is had prior surgeries including cholecystectomy and hysterectomy in the past. Denies any other daily prescription medications. No known drug allergies. No tobacco, occasional alcohol, no recreational drugs. Patient's primary care is Dr. Anderson. Her orthopedic surgeon is Dr. Bettye Rosario. Related Data Previous Rx's Medication Instructions Recorded hydroxyzine HCl 50 mg tablet 50 mg PO QID PRN anxiety #14 tabs 05/19/22 oxycodone-acetaminophen 5 mg-325 1 tab PO Q6H PRN pain #10 tabs 12/13/22 mg tablet (Percocet) pantoprazole 40 mg tablet,delayed 40 mg PO DAILY #30 tabs 08/02/23 release (Protonix) oxycodone 5 mg tablet 5 mg PO Q6H PRN pain #14 tabs 10/03/23 Allergies Allergy/AdvReac Type Severity Reaction Status Date / Time No Known Drug Allergies Allergy Verified 05/19/22 17:02 Review of Systems Review of Systems ROS Unobtainable: All systems reviewed & are unremarkable except as noted in HPI and below Patient History Social History Smoking Status: Never smoker Smoking Status: Never smoker alcohol intake frequency: a few times a month Substance Use Type: does not use Exam Narrative Exam Narrative: GENERAL: Alert and oriented x three, well-appearing female in mild distress. HEENT: Head normocephalic, atraumatic, EOMI, pupils reactive, face symmetric, moist mucous membranes NECK: Supple, full range of motion CARDIOVASCULAR: Regular rate and rhythm without murmurs, rubs or gallops. RESPIRATORY: Breath sounds equal bilaterally, no wheezes rales or rhonchi. ABDOMEN: Soft, nontender. Normoactive bowel sounds all 4 quadrants. No guarding or rebound, rigidity, no mass EXTREMITIES: Slightly decreased range of motion of the right knee. Otherwise normal range of motion, no clubbing. Patient does have some edema of the right knee tracking somewhat into the calf in comparison to her left. Has multiple incisions were total over knee which are clean dry and intact without any erythema or drainage. Patient does not have any significant pain with palpation over the calf or thigh. Does have tenderness over the knee. Neurovascularly intact, 2+ dorsalis pedis. Sensation intact to light touch throughout. No warmth, erythema or other skin changes noted. NEUROLOGICAL: Cranial nerves II through XII grossly intact. Moving all extremities SKIN: Warm, dry, no petechiae, no rashes or lesions noted other than above. Initial Vital Signs Initial Vital Signs: Vital Signs Temperature 98.4 F 10/03/23 12:02 Pulse Rate 74 10/03/23 12:02 Respiratory Rate 16 10/03/23 12:02 Blood Pressure 149/80 H 10/03/23 12:02 Pulse Oximetry 96 10/03/23 12:02 Oxygen Delivery Method Room Air 10/03/23 12:02 Course Orders Ordered: ED Orders 10/03/23 12:08 periph venous low extrem rt Stat Discontinued Medications Hydrocodone Bitart/Acetaminophen (Hydrocodone/Acet 5/325 Tablet) 1 tab PO NOW ONE Stop: 10/03/23 15:58 Last Admin: 10/03/23 16:06 Dose: 1 tab Documented By: CHRISTIANO Vital Signs Vital signs: Vital Signs - 8 hr 10/03/23 12:02 10/03/23 14:41 10/03/23 14:49 Temperature 98.4 F Pulse Rate 74 81 Pulse Rate [Right Dorsalis Pedis] 68 Respiratory Rate 16 14 Blood Pressure 149/80 H 156/78 H Pulse Oximetry 96 99 Oxygen Delivery Method Room Air Room Air 10/03/23 16:37 Temperature 97.7 F Pulse Rate 74 Pulse Rate [Right Dorsalis Pedis] Respiratory Rate 16 Blood Pressure 134/72 Pulse Oximetry 99 Oxygen Delivery Method Room Air MDM - Extremity (Nontraumatic) Imaging Data US - DVT: Radiologist's Impression: [address] [address] Ultrasound Report Signed Patient: Eliz Sorensen MR#: [id number] : 1980 Acct:[id number] Age/Sex: 43 / F Date of Service: 10/03/23 Loc: ED Accession Number: [id number] Procedure: US perip venous low extrem rt Ordering Provider: Gabby Jara D.O. PROCEDURE: US PERIP VENOUS LOW EXTREM RT INDICATIONS: PAIN, EDEMA 6 DAYS POST OP TECHNIQUE: Real-time imaging, as well as color and pulse Doppler interrogation, were performed of the lower extremity deep veins from the inguinal ligament to the popliteal fossa, with documentation of the visualized calf veins. COMPARISON: [facility], PERIP VENOUS LOW EXTREM RT, 12/09/2022, 16:33. FINDINGS: The common femoral, femoral, popliteal, and the visualized calf veins are normally compressible, and free of intraluminal thrombus. Color and pulse Doppler demonstrate normal phasic intraluminal flow. There is normal augmentation response to distal compression maneuver. Incidental noted popliteal cyst measuring 6 x 2.5 cm. IMPRESSION: No findings of lower extremity deep venous thrombosis. Dictated by: Riaz Wade M.D. on 10/03/2023 at 13:58 Approved by: Riaz Wade M.D. on 10/03/2023 at 13:[address] [facility] Narrative Medical decision making narrative: 43-year-old female 6 days postoperative from right meniscal surgery. Patient states he is had some increasing swelling and discomfort particularly in the calf and radiating up towards the thigh. She reports low-grade fevers. Patient's exam does not show any erythema or obvious signs of infection. Patient is slightly swollen. She has been on aspirin 81 mg for DVT prophylaxis. DVT ultrasound is negative. Plan for watchful waiting, follow up with Orthopedic surgery but discussed return precautions if having fevers or other infectious changes. Discharge Plan Departure Patient Disposition: Home Clinical Impression: Pain and swelling of right lower extremity, S/P knee surgery Activity Restrictions/Additional Instructions: Please follow up with the orthopedic team as needed. Your ultrasound today does not show any signs of DVT or blood clot. You may take Tylenol or acetaminophen up to a 1000 mg every 6 hours. You can take ibuprofen or NSAIDs with this medication if not contra indicated for other reasons. You may take oxycodone 1-2 tablets every 6 hours as needed for pain. Prescription sent to [facility] in [place]. Please return for fevers greater than 100.4 F, rapidly worsening swelling, increasing pain, new redness, drainage from your incisions or other new or concerning changes Prescriptions: New oxycodone 5 mg tablet 5 mg PO Q6H PRN (Reason: pain) Qty: 14 0RF No Action hydroxyzine HCl 50 mg tablet 50 mg PO QID PRN (Reason: anxiety) Qty: 14 0RF oxycodone-acetaminophen [Percocet] 5-325 mg tablet 1 tab PO Q6H PRN (Reason: pain) Qty: 10 0RF pantoprazole [Protonix] 40 mg tablet,delayed release (DR/EC) 40 mg PO DAILY Qty: 30 0RF Referrals: James Anderson MD [Primary Care Provider] - Stand Alone Forms: Patient Portal/API
[2023-10-03] MEDS: HYDROCODONE/ACET 5/325 TABLET 1 TAB PO (16:06)
[2023-10-03 16:37] VITALS: BP 134/72; PULSE 74; RESP 16; TEMP 36.5; O2SAT 99
== END 2023-10-03 16:38 | disposition home or self-care (01) ==
PROVIDERS: Emergency Provider Emergency Medicine; PCP Family Medicine
DX: G89.18 Other acute postprocedural pain (principal); R60.0 Localized edema
CPT/HCPCS: 93971; 99283

== ENCOUNTER 2024-05-15 07:07 | Day surgery (SDC) | payer BC, SELFPAY ==
--- NOTE | 2024-05-15 | PATH_ITS ---
[facility] Accession Number: [id number] No. of containers..02 Tissue . 01 Material submitted: . PART A: colon - CECAL POLYP PART B: colon - TRANSVERSE COLON POLYP . 01 Diagnosis: A. CECAL POLYP, POLYPECTOMY: Tubular adenoma. . B. TRANSVERSE COLON POLYP, POLYPECTOMY: Amorphous/proteinaceous material. MRV 05/16/2024 1520 Local . 01 Electronically signed: . Katia Salazar MD, Pathologist NPI- [id number] . 01 Gross description: . Part A: CECAL POLYP: Received in formalin is 1 fragment(s) of ramirez, soft tissue measuring 0.6 x 0.4 x 0.2 cm submitted entirely in 1 cassette(s) Part B: TRANSVERSE COLON POLYP: Received in formalin is 1 fragment(s) of ramirez, soft tissue measuring 0.1 x 0.1 x 0.1 cm submitted entirely in 1 cassette(s) /TAMAR 05/16/2024 0139 Local . 01 Pathologist provided ICD-10: D12.6 . 01 CPT . 251727, 048550 Specimen Comment: A courtesy copy of this report has been sent to [phone] Performed at: [address] [facility], [place], [place] [id number] MD Brock Almeida MD Phone: [phone]
[2024-05-15 07:26] VITALS: BP 123/74; PULSE 79; RESP 16; TEMP 36.5; O2SAT 97
[2024-05-15] MEDS: LACTATED RINGERS 1,000 ML 42 ML IV (07:34)
--- NOTE | 2024-05-15 08:05 | P.HP_ITS ---
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 She indicates that she is also having ongoing symptoms of upper abdominal pain and reflux that is not well controlled. She is requested we therefore pursue both an upper and lower endoscopy today. [facility] Social History Smoking Status: Never smoker Meds Home Medications and Allergies Home Medications Medication Instructions Recorded Confirmed Type cyclobenzaprine 10 mg tablet 10 mg PO TID PRN Pain (Scale Score 05/15/24 05/15/24 History 4-6) Allergies Allergy/AdvReac Type Severity Reaction Status Date / Time No Known Drug Allergies Allergy Verified 05/15/24 07:20 Review of Systems Review of Systems ROS: Yes All systems reviewed with the patient and are negative except as otherwise documented Exam Vital Signs (past 8 hours): - 05/15/24 07:26 Temperature 97.7 F Pulse Rate 79 Respiratory Rate 16 Blood Pressure 123/74 Pulse Oximetry 97 Oxygen Delivery Method Room Air Oxygen Delivery Method Room Air Const General: cooperative HENMT Head: normal to inspection Eyes General: appearance normal, both eyes and all related structures Neck Neck: normal visual inspection Chest Chest: normal inspection of the chest Resp Effort & Inspection: normal respiratory effort Cardio Rate: regular rate GI Inspection: normal to inspection Skin General: no rashes or lesions noted Neuro General: patient alert and patient awake Extrem General: normal to inspection and no pedal edema Psych Appearance: grossly normal Assessment & Plan Assessment & Plan narrative: 44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 She has symptoms of GERD and upper abdominal pain. EGD and colonoscopy are pursued today. I explained to the patient that we do not have a duodenal scope for papilla visualization but I will do my best to see this with a standard gastroscope. Time-Based Coding :: [TOTAL MINUTES] spent with patient and on the chart (including review of chart, obtaining history, exam, reviewing outside data, placing orders, documenting exam and treatment plan, and counseling patient) on [DATE].
--- NOTE | 2024-05-15 08:41 | PM.OP.COLON ---
Operative Date/Time/Diagnoses Date of procedure: 05/15/24 Time of procedure: 08:41 Pre-op diagnosis: Martin syndrome Post-op diagnosis: same Procedure & Clinicians Study performed: Colonoscopy with hot snare and cold snare polypectomies Same procedure as scheduled: Yes Indications: Martin syndrome Surgeon: Miguel Heredia Procedure Notes SCOAP/Timeout: Done Procedure in detail: After the risks and benefits were explained, written and verbal informed consent was obtained. The patient was brought into the procedure room and placed into the left lateral decubitus position. Conscious sedation medication was applied as per nursing documentation. Digital rectal examination was accomplished. The scope was introduced into the patient and advanced under direct visualization to the cecum as identified by the appendiceal orifice and ileocecal valve. The scope was slowly withdrawn to carefully examine the mucosa for any defects or lesions. Comprehensive imaging was accomplished throughout the rectum including the dentate line. The colon was decompressed, the scope was then removed from the patient who tolerated the procedure well. (we were planning on potentially doing upper endoscopy during this exam as well but did not receive authorization from an insurance standpoint to move forward so colonoscopy only was accomplished). Scope withdrawal time: 12 minutes Sedation minutes: 20 Complications: none Impression: There was some diverticulosis in the ascending colon. The terminal ileum was interrogated and appeared visually normal. In the cecum there was an approximately 6 mm sessile polyp removed with hot snare. In the distal transverse colon there was a diminutive 3-4 mm polyp removed with cold snare. No additional mucosal pathology was appreciated throughout. Endoscopic diagnosis 1. Colon polyps 2. Right colon diverticulosis Post-procedure Plan for aftercare: 1. Await histology 2. Contingent on pathology results, repeat colonoscopy will likely be suggested for 1 year. 3. Proceed with EGD once authorized by insurance. Disposition: PACU
[2024-05-15 08:43] VITALS: BP 112/76; PULSE 71; RESP 17; TEMP 36.3; O2SAT 95
[2024-05-15 08:47] VITALS: BP 119/77; PULSE 70; RESP 16; O2SAT 96
[2024-05-15 08:53] VITALS: BP 114/75; PULSE 64; RESP 10; O2SAT 98
[2024-05-15 08:55] VITALS: BP 127/75; PULSE 66; RESP 11; TEMP 36.9; O2SAT 98
--- NOTE | 2024-05-15 08:57 | PM.PREOP ---
Pre-operative Note Interval Note History & Physical reviewed/Exam performed by Physician: Yes Changes to H&P: Yes ASA Class (for procedural sedation): II
== END 2024-05-15 09:20 | disposition home or self-care (01) ==
PROVIDERS: PCP Family Medicine; Referring Provider Internal Medicine Gastroenterology; Visit Provider Internal Medicine Gastroenterology
PROC: 0DJD8ZZ Inspection of Lower Intestinal Tract, Via Natural or Artificial Opening Endoscopic (ICD-10-PCS; CPT 45378; 2024-05-15 08:00)
CPT/HCPCS: J2704

== ENCOUNTER 2024-05-15 23:12 | Emergency (ER) | payer BC, SELFPAY ==
[2024-05-15 23:21] VITALS: BP 176/84; PULSE 105; RESP 22; TEMP 36.6; O2SAT 100; BMI 27.4
--- NOTE | 2024-05-15 23:25 | PC.NURSE ---
Provider aware of patient presentation and vital signs and will put in orders.
--- NOTE | 2024-05-15 23:30 | ED.ABDPAIN ---
HPI - Abdominal Pain General Chief Complaint: Abdominal Pain Stated Complaint: fever, shaking and pain Time Seen by Provider: 05/15/24 23:15 Source: patient Mode of arrival: Ambulatory History of Present Illness HPI narrative: 44-year-old female presents for right lower quadrant abdominal pain, subjective fevers, shaking chills. Underwent colonoscopy earlier this morning due to family history of early colon cancer. Two polyps were removed and patient was discharged home. She states that she has been recovering well at home, until this evening when her symptoms began. She stated that she measured a temperature of 99.9? F at home and became concerned, coming to the ER for evaluation. Denies nausea, vomiting. States she is still passing gas. Related Data Home Medications Medication Instructions Recorded Confirmed cyclobenzaprine 10 mg tablet 10 mg PO TID PRN Pain (Scale Score 05/15/24 05/15/24 4-6) Allergies Allergy/AdvReac Type Severity Reaction Status Date / Time No Known Drug Allergies Allergy Verified 05/15/24 07:20 Patient History Social History Smoking Status: Never smoker Smoking Status: Never smoker alcohol intake frequency: a few times a month Substance Use Type: does not use Exam Initial Vital Signs Initial Vital Signs: Vital Signs Temperature 97.8 F 05/15/24 23:21 Pulse Rate 105 H 05/15/24 23:21 Respiratory Rate 22 05/15/24 23:21 Blood Pressure 176/84 H 05/15/24 23:21 Pulse Oximetry 100 05/15/24 23:21 Oxygen Delivery Method Room Air 05/15/24 23:21 Const: Awake, alert, ill-appearing, nontoxic Cardiac: Tachycardia, regular rhythm RESP: unlabored, clear bilaterally, no wheezing GI: Soft, right lower quadrant tenderness to deep palpation, no rebound, no guarding Skin: Warm, Dry, intact, no rashes Neuro: AO x3, CN II-XII grossly intact, moves all extremities Course Orders Ordered: ED Orders 05/15/24 23:30 CT abdomen pelvis w con Stat 05/15/24 23:39 CBC Auto Diff [Complete Blood Count AUTO DIFF] Stat CMP [Comprehensive Metabolic Panel] Stat Lactate (Lactic Acid) Stat Lipase Stat Discontinued Medications Sodium Chloride (Normal Saline 0.9%) 1,000 mls @ 1,000 mls/hr IV BOLUS ONE Stop: 05/16/24 00:28 Last Infusion: 05/16/24 01:45 Dose: Infused Documented By: Admin: 05/16/24 00:04 Dose: 1,000 mls/hr Documented By: JEANIE Morphine Sulfate (Morphine 4 Mg/Ml Inj) 4 mg IV NOW ONE Stop: 05/15/24 23:30 Last Admin: 05/15/24 23:42 Dose: 4 mg Documented By: JEANIE Ondansetron HCl (Ondansetron 4 Mg/2 Ml Inj) 4 mg IV NOW ONE Stop: 05/15/24 23:30 Last Admin: 05/15/24 23:42 Dose: 4 mg Documented By: JEANIE Vital Signs Vital signs: Vital Signs - 8 hr 05/15/24 23:21 05/15/24 23:41 05/16/24 00:03 Temperature 97.8 F 98.0 F Pulse Rate 105 H 92 H 83 Respiratory Rate 22 Blood Pressure 176/84 H Pulse Oximetry 100 98 99 Oxygen Delivery Method Room Air Room Air 05/16/24 00:03 05/16/24 00:30 05/16/24 00:30 Temperature Pulse Rate 88 Respiratory Rate Blood Pressure 133/67 125/65 Pulse Oximetry 97 Oxygen Delivery Method 05/16/24 01:00 05/16/24 01:00 05/16/24 01:30 Temperature Pulse Rate 96 H 96 H Respiratory Rate Blood Pressure 119/61 Pulse Oximetry 96 95 Oxygen Delivery Method Room Air 05/16/24 01:30 Temperature Pulse Rate Respiratory Rate 17 Blood Pressure 113/60 Pulse Oximetry Oxygen Delivery Method MDM - Abdominal Pain Differential Diagnosis Differential diagnosis: Likely abdominal pain, acute appendicitis and calculus of kidney Lab Data 05/15/24 23:39 05/15/24 23:39 Labs: Lab Results 05/15/24 Range/Units 23:39 WBC 11.4 H (4.5-11.0) X10^3/uL RBC 4.52 (4.0-5.2) X10^6/uL Hgb 14.2 (12.0-16.0) g/dL Hct 41.1 (36-46) % MCV 91.1 (80-100) fL MCH 31.3 (26-34) PG MCHC 34.4 (30-36) % RDW 12.7 (11.6-14.8) % Plt Count 266 (150-400) X10^3/uL Neut % (Auto) 75.9 H (50-75) % Lymph % (Auto) 18.6 L (25-40) % [place] % (Auto) 4.6 (3-14) % Eos % (Auto) 0.4 L (2-4) % Baso % (Auto) 0.5 (0-2) % Neut # (Auto) 8700 H (0416-9383) /uL Lymph # (Auto) 2100 (9614-3865) /uL [place] # (Auto) 500 (0-900) /uL Eos # (Auto) 0 (0-450) /uL Baso # (Auto) 100 (0-100) /uL Sodium 136 L (137-145) mmol/L Potassium 3.6 (3.4-5.1) mmol/L Chloride 106 (98-107) mmol/L Carbon Dioxide 22 (22-32) mmol/L BUN 14 (7-17) mg/dL Creatinine 0.67 (0.52-1.04) mg/dL Estimated GFR > 60 (>60) mL/min BUN/Creatinine Ratio 20.9 (6-22) Glucose 109 H (70-100) mg/dL Lactate 1.7 (0.7-2.1) mmol/L Calcium 9.3 (8.4-10.2) mg/dL Total Bilirubin 0.5 (0.2-1.3) mg/dL AST 21 (14-36) IU/L ALT 23 (<35) IU/L Alkaline Phosphatase 82 (38-126) U/L Total Protein 7.1 (6.3-8.2) g/dL Albumin 4.2 (3.5-5.0) g/dL Globulin 2.9 (1.7-4.1) g/dL Albumin/Globulin Ratio 1.4 (1.0-2.8) Lipase 142 (23-300) U/L Imaging Data CT scan - abdomen/pelvis: Radiologist's Impression: ADDENDUMThis report includes an Addendum and supersedes previous reports for this exam. PROCEDURE: CT ABDOMEN PELVIS W CON INDICATIONS: RLQ PAIN, COLONOSCOPY THIS AM TECHNIQUE: After the administration of intravenous contrast, axial sections acquired from the lung bases to the pubic symphysis. Coronal and sagittal reformats were performed. For radiation dose reduction, the following was used: automated exposure control, adjustment of mA and/or kV according to patient size. COMPARISON: None. FINDINGS: Image quality: Diagnostic. Lower Chest: No significant findings. ABDOMEN: Liver: No solid mass. Gallbladder: Absent. Biliary ducts: No biliary dilation. Pancreas: No ductal dilation. Spleen: Size is within normal limits. Adrenal Glands: No adrenal nodules. Kidneys and Ureters: No hydronephrosis. Small nonobstructing left kidney stone. No solid mass. No complex renal cystic lesion which requires follow up. Stomach and Bowel: Normal colonic caliber, without significant wall thickening. Normal appendix. Peritoneum: No abnormal intraperitoneal fluid. No free air. Ventral Wall: No significant ventral hernia. Abdominal Nodes: No retroperitoneal or mesenteric adenopathy by size criteria. Vessels: Aorta and inferior vena cava are normal in size. PELVIS: Pelvic Organs: Uterus is absent. Bladder: No stone. Pelvic Nodes: No enlarged lymph nodes. Miscellaneous: No inguinal hernias are seen. Bones: No aggressive osseous abnormality. IMPRESSION: Bowel obstruction. No pneumoperitoneum. No free fluid. Normal appendix. There are post cholecystectomy. Small nonobstructing left kidney stone. Dictated by: Dat Georges M.D. on 05/16/2024 at 1:28 Approved by: Dat Georges M.D. on 05/16/2024 at 1:32 ADDENDUM: Dictation error. No bowel obstruction. No pneumoperitoneum. No free fluid. Normal appendix. Post cholecystectomy. Small nonobstructing left kidney stone. Dictated by: Dat Georges M.D. on 05/16/2024 at 1:48 Approved by: Dat Georges M.D. on 05/16/2024 at 1:49 MDM Narrative Medical decision making narrative: Nontoxic patient presenting for right lower quadrant pain and chills after colonoscopy less than 12 hours ago. Abdomen is soft, no peritoneal signs, she was tender to deep palpation in the right lower quadrant. Since she just had colonoscopy a CT will be ordered along with laboratory work. Laboratory work reviewed, WBC count 11.4, hemoglobin 14.2, platelets 266, sodium 136, potassium 3.6, creatinine 0.67, normal liver enzymes. CT of the abdomen and pelvis shows no acute findings. Patient reassessed, resting comfortably in bed. Feels improved after medications. Patient informed of all lab and imaging findings. No obvious explanation for patient's symptoms found. Could possibly be related to polyp removal as there was a polyp removed in the cecum during the colonoscopy today. Patient advised to call her GI team if she continues to experience pain and chills. Discharge Plan Departure Patient Disposition: Home Clinical Impression: Abdominal pain, Cecal polyp Instructions: DI for Abdominal Pain-Adult Activity Restrictions/Additional Instructions: Your laboratory work today was reassuring. Your CT today did not show any blockage or perforation. You did have a polyp removed in your right side that may be related to your pain, however your CT today is reassuring. Follow up with your customer experience intern if you continue to experience symptoms. Continue all other medications as prescribed. Prescriptions: No Action cyclobenzaprine 10 mg Tablet 10 mg PO TID PRN (Reason: Pain (Scale Score 4-6)) Referrals: James Anderson MD [Primary Care Provider] - Stand Alone Forms: Patient Portal/API
[2024-05-15 23:41] VITALS: PULSE 92; O2SAT 98
[2024-05-15] MEDS: MORPHINE 4 MG/ML INJ IV (23:42)
[2024-05-15] MEDS: ONDANSETRON 4 MG/2 ML INJ IV (23:42)
[2024-05-15 23:46] LABS: Add Manual Diff / Slide Review NO; Basophils Absolute Auto 100 /uL (0-100); Basophils Percent Auto 0.5 % (0-2); Eosinophils Absolute Auto 0 /uL (0-450); Eosinophils Percent Auto 0.4 % (2-4); Hematocrit 41.1 % (36-46); Hemoglobin 14.2 g/dL (12.0-16.0); Lymphocytes Absolute Auto 2100 /uL (1100-4500); Lymphocytes Percent Auto 18.6 % (25-40); Mean Corpuscular HGB Conc 34.4 % (30-36); Mean Corpuscular Hemoglobin 31.3 PG (26-34); Mean Corpuscular Volume 91.1 fL (80-100); Monocytes Absolute Auto 500 /uL (0-900); Monocytes Percent Auto 4.6 % (3-14); Neutrophils Absolute Auto 8700 /uL (1500-7000); Neutrophils Percent Auto 75.9 % (50-75); Platelet Count 266 X10^3/uL (150-400); Red Blood Cell Count 4.52 X10^6/uL (4.0-5.2); Red Cell Distribution Width 12.7 % (11.6-14.8); White Blood Cell Count 11.4 X10^3/uL (4.5-11.0)
[2024-05-15 23:57] LABS: Alanine Aminotransferase 23 IU/L (<35); Albumin 4.2 g/dL (3.5-5.0); Albumin Globulin Ratio 1.4 (1.0-2.8); Alkaline Phosphatase 82 U/L (38-126); Aspartate Aminotransferase 21 IU/L (14-36); BUN Creatinine Ratio 20.9 (6-22); Bilirubin Total 0.5 mg/dL (0.2-1.3); Blood Urea Nitrogen 14 mg/dL (7-17); Calcium 9.3 mg/dL (8.4-10.2); Carbon Dioxide 22 mmol/L (22-32); Chloride 106 mmol/L (98-107); Estimated Glomerular Filt Rate > 60 mL/min (>60); Globulin 2.9 g/dL (1.7-4.1); Glucose 109 mg/dL (70-100); HEMOLYSIS < 15 (0-50); Lipase 142 U/L (23-300); Potassium 3.6 mmol/L (3.4-5.1); Sodium 136 mmol/L (137-145); Total Protein 7.1 g/dL (6.3-8.2)
[2024-05-15 23:58] LABS: Lactate (Lactic Acid) 1.7 mmol/L (0.7-2.1)
[2024-05-16 00:03] VITALS: BP 133/67; PULSE 83; TEMP 36.7; O2SAT 99
[2024-05-16] MEDS: SODIUM CHLORIDE 0.9% 1,000 ML 1000 ML IV (00:04)
[2024-05-16 00:30] VITALS: BP 125/65; PULSE 88; O2SAT 97
[2024-05-16 01:00] VITALS: BP 119/61; PULSE 96; O2SAT 96
[2024-05-16 01:30] VITALS: BP 113/60; PULSE 96; RESP 17; O2SAT 95
== END 2024-05-16 02:02 | disposition home or self-care (01) ==
PROVIDERS: Emergency Provider Emergency Medicine; PCP Family Medicine
DX: R10.31 Right lower quadrant pain (principal); D12.0 Benign neoplasm of cecum; K21.9 Gastro-esophageal reflux disease without esophagitis; R10.10 Upper abdominal pain, unspecified; Z15.09 Genetic susceptibility to other malignant neoplasm; Z86.010 Personal history of colon polyps; Z80.0 Family history of malignant neoplasm of digestive organs; Z83.710 Family history of adenomatous and serrated polyps; D12.3 Benign neoplasm of transverse colon; K57.30 Diverticulosis of large intestine without perforation or abscess without bleeding
CPT/HCPCS: 45385; 36415; 74177; 80053; 83605; 83690; 85025; 96361; 96374; 96375; 99284; J2270; J2405; J2704; Q9967

== ENCOUNTER → 2024-09-09 09:49 | Outpatient (CLI) | payer BC, SELFPAY ==
--- NOTE | 2024-09-09 | DI.MG.S_ITS ---
BILATERAL DIGITAL SCREENING MAMMOGRAM 3D/2D WITH CAD: 09/09/2024 CLINICAL: Routine screening. Comparison is made to exams dated: 09/03/2023 mammogram, 09/01/2022 mammogram, and 06/18/2021 mammogram - [facility]. The breasts are heterogeneously dense, which may obscure small masses (category c / 51-75% glandular tissue). Current study was also evaluated with a Computer Aided Detection (CAD) system. There is a cluster of high density asymmetries in the left breast at 1 o'clock anterior depth. This is more prominent. No other significant masses, calcifications, or other findings are seen in either breast. IMPRESSION: INCOMPLETE: NEED ADDITIONAL IMAGING EVALUATION The cluster of high density asymmetries in the left breast is indeterminate. Additional views with possible ultrasound are recommended. Based on the Tyrer Cuzick model (a risk assessment model) the patient's lifetime risk is 12.8% and her 10 year risk is 2.2%. According to the ACR, ACS, and NCCN guidelines, an annual breast MRI exam along with mammogram is recommended if the patient's lifetime risk is 20% or greater. This exam was interpreted at Station ID: [id number]. NOTE: For mammograms, a report in lay terms will be sent to the patient. Approximately 15% of breast malignancies will not be visualized mammographically. In the management of a palpable breast mass, a negative mammogram must not discourage biopsy of a clinically suspicious lesion. Electronically Signed By: Holly daley/annabel:09/11/2024 13:43:42 letter sent: Additional Imaging Needed ACR BI-RADS Category 0: Incomplete: Need Additional Imaging Evaluation
== END ==
PROVIDERS: PCP Family Medicine; Referring Provider Family Medicine; Visit Provider Family Medicine
DX: Z12.31 Encounter for screening mammogram for malignant neoplasm of breast (principal); R92.333 Mammographic heterogeneous density, bilateral breasts
CPT/HCPCS: 77063; 77067

== ENCOUNTER → 2024-09-12 15:48 | Outpatient (CLI) | payer BC, SELFPAY ==
--- NOTE | 2024-09-12 15:49 | DI.RAD.S_ITS ---
PROCEDURE: XR CHEST 2V INDICATIONS: COUGH TECHNIQUE: 2 views of the chest were acquired. COMPARISON: [facility], CR, XR CHEST 1V, 08/02/2023, 16:42. FINDINGS: Surgical changes and devices: None. Lungs and pleura: Lungs are clear. No pleural effusions or pneumothorax. Mediastinum: Mediastinal contours are normal. Heart size is normal. Bones and chest wall: No suspicious bony abnormalities. Soft tissues appear unremarkable. IMPRESSION: No acute pulmonary process. Dictated by: Shandra Burton M.D. on 09/12/2024 at 21:15 Approved by: Shandra Burton M.D. on 09/12/2024 at 21:15
== END ==
PROVIDERS: PCP Family Medicine; Referring Provider Internal Medicine; Visit Provider Internal Medicine
DX: R05.1 Acute cough (principal)
CPT/HCPCS: 71046

== ENCOUNTER → 2024-09-12 17:32 | Outpatient (ROUT) | payer BC, SELFPAY ==
[2024-09-12 18:27] LABS: COVID-19 CEPHEID 4-PLEX PCR Negative (Negative); Influenza A - CEPHEID Flu A NEGATIVE (NEGATIVE); Influenza B - CEPHEID Flu B NEGATIVE (NEGATIVE); Respiratory Syncytial Virus Negative (Negative)
== END ==
PROVIDERS: PCP Family Medicine; Visit Provider Internal Medicine
DX: R05.1 Acute cough (principal)
CPT/HCPCS: 0241U; 71046

== ENCOUNTER → 2024-09-29 08:46 | Outpatient (CLI) | payer BC, SELFPAY ==
--- NOTE | 2024-09-29 08:47 | DI.US.S_ITS ---
LIMITED ULTRASOUND OF LEFT BREAST: 09/29/2024 CLINICAL: Patient returns today to evaluate a focal asymmetry in the left breast. Comparison is made to exams dated: 09/29/2024 mammogram, 09/09/2024 mammogram, and 09/03/2023 mammogram - [facility]. Real-time ultrasound of the left breast 1-3 o'clock region was performed. Starkey scale images of the real-time examination were reviewed. No significant abnormalities were seen sonographically in the left breast. IMPRESSION: NEGATIVE There is no sonographic evidence of malignancy. There is no abnormality seen in the left breast to correspond with the now resolved mammography finding which is consistent with normal fibroglandular tissue. A 1 year screening mammogram is recommended. Findings and recommendations were conveyed to the patient during today's evaluation. This exam was interpreted at Station ID: [id number]. Electronically Signed By: Remberto Nava M.D. aty/:09/29/2024 09:40:05 letter sent: Normal Exam ACR BI-RADS Category 1: Negative
--- NOTE | 2024-09-29 08:47 | DI.MG.S_ITS ---
UNILATERAL LEFT DIGITAL DIAGNOSTIC MAMMOGRAM 3D/2D WITH ADDITIONAL VIEWS: 09/29/2024 CLINICAL: Additional evaluation requested from prior study. Comparison is made to exams dated: 09/03/2023 mammogram, 09/09/2024 mammogram, and 09/01/2022 mammogram - [facility]. The breasts are heterogeneously dense, which may obscure small masses (category c / 51-75% glandular tissue). The previously described cluster of high density asymmetries in the left breast at 1 o'clock middle depth is no longer seen. This is not seen in additional views and is consistent with summation artifact. No other significant masses or calcifications are seen in the breast. IMPRESSION: INCOMPLETE: NEED ADDITIONAL IMAGING EVALUATION An ultrasound is recommended to confirm the no longer seen high density asymmetries in the left breast middle depth which is scheduled to immediately follow this exam. Based on the Tyrer Cuzick model (a risk assessment model) the patient's lifetime risk is 12.8% and her 10 year risk is 2.2%. According to the ACR, ACS, and NCCN guidelines, an annual breast MRI exam along with mammogram is recommended if the patient's lifetime risk is 20% or greater. This exam was interpreted at Station ID: [id number]. NOTE: For mammograms, a report in lay terms will be sent to the patient. Approximately 15% of breast malignancies will not be visualized mammographically. In the management of a palpable breast mass, a negative mammogram must not discourage biopsy of a clinically suspicious lesion. Electronically Signed By: Remberto Nava M.D. aty/:09/29/2024 09:30:04 letter sent: Additional Imaging Needed ACR BI-RADS Category 0: Incomplete: Need Additional Imaging Evaluation
== END ==
PROVIDERS: PCP Family Medicine; Referring Provider Family Medicine; Visit Provider Family Medicine
DX: R92.8 Other abnormal and inconclusive findings on diagnostic imaging of breast (principal); R92.333 Mammographic heterogeneous density, bilateral breasts
CPT/HCPCS: 76642; 77065; G0279

== ENCOUNTER → 2024-12-28 11:50 | Outpatient (CLI) | payer BC, SELFPAY | PROVIDERS: Family Provider Family Medicine; PCP Family Medicine; Referring Provider Orthopaedic Surgery; Visit Provider Orthopaedic Surgery | DX: G56.01 Carpal tunnel syndrome, right upper limb (principal) | CPT/HCPCS: 95886; 95910 ==

== ENCOUNTER → 2025-03-15 09:37 | Outpatient (CLI) | payer BC, SELFPAY ==
--- NOTE | 2025-03-15 09:40 | DI.MG.S_ITS ---
MM diagnostic mammo unilat LT: 03/15/2025. BI-RADS: 1 CLINICAL: 44-year old female for left diagnostic mammogram. Tyrer-Cuzick lifetime risk of 14.1%. No personal or first-degree family history of breast cancer. Current reported family history of breast cancer: maternal aunt. PRIOR EXAMS 09/29/2024, 09/09/2024, 09/03/2023, 09/01/2022, 06/18/2021, 04/16/2020. MAMMOGRAPHY TECHNIQUE: 2D and 3D (tomosynthesis) digital mammographic views obtained, with additional images as needed for full coverage. Current study was also evaluated with a Computer Aided Detection (CAD) system. DENSITY Left: C. The breasts are heterogeneously dense, which may obscure small masses. MAMMOGRAPHY FINDINGS Left: No suspicious mass, asymmetry, microcalcification, or other abnormality seen. Of note, because the patient's symptoms are non-focal, no skin marker was placed. IMPRESSION: Left * No evidence of malignancy. RECOMMENDATIONS Left * Diffuse, non-focal symptoms, such as pain or fullness are typically benign. Clinical follow-up is recommended, and further management of these symptoms should be based on the results of clinical evaluation. If diffuse symptoms persist or become more focal in nature, further clinical evaluation should be considered. Bilateral * Annual screening mammography. COMMENTS: Findings and recommendations were conveyed to the patient during today's evaluation. OVERALL ASSESSMENT CATEGORY BI-RADS-1: Negative. The [employer] recommends annual screening mammography beginning at age 40 for women with average risk of breast cancer. ELECTRONICALLY SIGNED: Paris Rodriguez M.D. on 03/15/2025 at 11:01:07 AM PT Interpreting Station ID: [id number]
== END ==
LOC: MAMMO 09:38
PROVIDERS: Family Provider Family Medicine; PCP Family Medicine; Referring Provider Family Medicine; Visit Provider Family Medicine
DX: N64.4 Mastodynia (principal); Z80.3 Family history of malignant neoplasm of breast; R92.332 Mammographic heterogeneous density, left breast
CPT/HCPCS: 77065; G0279

== ENCOUNTER 2025-04-29 13:12 | Emergency (ER) | payer BC, SELFPAY ==
[2025-04-29 13:18] VITALS: BP 154/73; PULSE 61; RESP 14; TEMP 36.8; O2SAT 94; BMI 29.2
--- NOTE | 2025-04-29 13:40 | ED.UPPEXIN ---
HPI - Extremity Injury (Upper) General Chief Complaint: Extremity Injury, Upper Stated Complaint: left ring finger injury Time Seen by Provider: 04/29/25 13:31 Source: patient Mode of arrival: Ambulatory History of Present Illness HPI narrative: Ms. Sorensen is a very pleasant 45-year-old female with no significant past medical history who presents to the emergency department for a right ring finger laceration that occurred prior to arrival. Patient was cleaning the stainless steel metal grate above her oven when she sliced the outside of her right ring finger. There was a significant amount of bleeding so patient was unable to visualize the wound very well, bleeding has stopped at this time with direct pressure. She has approximately 2 cm linear superficial flap on the lateral aspect of the right ring finger. Patient still has full range of motion of the finger and sensation distal to the wound. No blood thinner use. No diabetes. No other concerns. No medication allergies. Related Data Home Medications ?Medication ?Instructions ?Recorded ?Confirmed cyclobenzaprine 10 mg tablet 10 mg PO TID PRN Pain (Scale Score 05/15/24 05/15/24 4-6) Allergies Allergy/AdvReac Type Severity Reaction Status Date / Time No Known Drug Allergies Allergy Verified 05/15/24 07:20 Review of Systems Review of Systems ROS Unobtainable: All systems reviewed & are unremarkable except as noted in HPI and below Patient History Social History Smoking Status: Never smoker Smoking Status: Never smoker alcohol intake frequency: a few times a month Exam Narrative Exam Narrative: GENERAL: 45 year old patient appears stated age. Well-developed patient, in no acute distress. HEAD: Atraumatic. Normocephalic. NECK: Trachea midline. Cervical ROM intact. CARDIOVASCULAR: Regular rate RESPIRATORY: ?Nonlabored respirations. ?Speaking in clear, full sentences. ? EXTREMITIES: 2 cm linear curved flap like laceration on the lateral aspect of the right ring finger middle phalanx. No active bleeding during exam. Patient still has flexion and extension intact at the ring finger D IP, PIP, MCP. Brisk capillary refill and sensation intact to light touch on the finger tip. NEURO: AOx3. ?Clear speech. ?Moves all 4 extremities appropriately. SKIN: Warm, dry. No rashes. Right ring finger laceration described above. Initial Vital Signs Initial Vital Signs: Vital Signs Temperature 98.3 F 04/29/25 13:18 Pulse Rate 61 04/29/25 13:18 Respiratory Rate 14 04/29/25 13:18 Blood Pressure 154/73 H 04/29/25 13:18 Pulse Oximetry 94 04/29/25 13:18 Oxygen Delivery Method Room Air 04/29/25 13:18 Procedures Laceration Repair Laceration 1: Site: hand (ring finger) Side (If applicable): right Size (cm): 2 Description: flap Depth: simple, single layer Pre-repair: wound explored, irrigated extensively and deep structures intact Skin layer closed with: dermabond Course Orders Ordered: Discontinued Medications Diphtheria/Tetanus/Acell Pertussis (Tet,Diph,Pertuss(Acell),Vac/Pf 0.5 Ml Syringe) 0.5 ml IM .ONCE ONE Stop: 04/29/25 14:07 Last Admin: 04/29/25 14:14 Dose: 0.5 ml Documented By: LM Vital Signs Vital signs: Vital Signs - 8 hr 04/29/25 13:18 Temperature 98.3 F Pulse Rate 61 Respiratory Rate 14 Blood Pressure 154/73 H Pulse Oximetry 94 Oxygen Delivery Method Room Air MDM - Extremity Injury (Upper) Medical Records Attestation: I reviewed the patient's medical records. [facility] Narrative Medical decision making narrative: 45-year-old female with no significant past medical history who presents to the emergency department for a right ring finger laceration that occurred prior to arrival. Differential diagnosis includes but is not limited to flap laceration, linear laceration, foreign body, etc. On exam patient is in no acute distress, nontoxic appearing, vital signs appropriate. She has a superficial flap laceration in the right lateral ring finger. We will update Tdap. Patient currently soaking finger and diluted Betadine, declines need for digital block at this time currently, we will proceed with wound repair. Wound was approximated using Dermabond. Nonadherent dressing applied and middle and ring fingers were anuradha-taped. Discussed proper wound care, ED return precautions, PCP follow up. Patient verbalized understanding of all information agreeable with the plan. She is stable for discharge home. Discharge Plan Departure Patient Disposition: Home Clinical Impression: Finger laceration Qualifiers: Encounter type: initial encounter Finger: ring finger Damage to nail status: without damage Foreign body presence: without foreign body Laterality: right Qualified Code(s): S61.214A - Laceration without foreign body of right ring finger without damage to nail, initial encounter Instructions: DI for Laceration Repair -- Finger Activity Restrictions/Additional Instructions: Dear Ms. Sorensen, Thank you for coming to the emergency department. Today you had a laceration to your right ring finger. We have use skin glue to close this laceration. This glue will come off on its own, or you may use ointment to remove it if it is still on after 1 week and your wound has healed. Please keep the dressing on your wound clean, dry, and intact for the next 24 hours. After this time, you may remove the dressing and gently clean the wound with soap and water, then pat dry. Keep the wound clean and covered. Avoid soaking the wound in any water such as a bath, pool, or the ocean. If you develop any signs of wound infection such as increased redness, pus drainage, streaking redness, or fevers, please return to the ER immediately for evaluation. We updated your tetanus shot today. Please follow up with your primary care doctor within the next 2-3 days for ER follow-up. (If you do not have a PCP you can call [phone]. ?to schedule an appointment with an [facility] Primary Care Provider) IF YOU DEVELOP ANY NEW OR WORSENING SYMPTOMS, RETURN TO THE ER! Please read the attached instructions, they highlight more specific treatments and interventions for you at home. Thank you for letting me participate in your care, Belkis Maxwell PA-C Prescriptions: No Action cyclobenzaprine 10 mg Tablet 10 mg PO TID PRN (Reason: Pain (Scale Score 4-6)) Referrals: James Anderson MD [Primary Care Provider, Family Practice] Stand Alone Forms: Patient Portal/API
[2025-04-29] MEDS: TET,DIPH,PERTUSS(ACELL),VAC/PF 0.5 ML SYRINGE IM (14:14)
== END 2025-04-29 15:04 | disposition home or self-care (01) ==
PROVIDERS: Emergency Provider Physician Assistant; Family Provider Family Medicine; PCP Family Medicine
DX: S61.214A Laceration without foreign body of right ring finger without damage to nail, initial encounter (principal); W26.9XXA Contact with unspecified sharp object(s), initial encounter; Z23 Encounter for immunization
CPT/HCPCS: 12001; 90471; 99283; 90715